=== PATIENT | female | born 1995 | race African-American/Black ===

== ENCOUNTER 2020-02-06 08:59 | Emergency (ER) | payer OTHER, SELFPAY ==
[2020-02-06 09:06] VITALS: BP 129/81; PULSE 94; RESP 18; TEMP 36.3; O2SAT 99
--- NOTE | 2020-02-06 09:20 | ED.EYEPROB ---
HPI - Eye Problem General Chief complaint: Eye Problems Stated complaint: eye pain/irritation Time Seen by Provider: 02/06/20 09:04 Source: patient Mode of arrival: ambulatory Limitations: no limitations History of Present Illness HPI Narrative: This patient is 24 year old female who presents for evaluation of left eye swelling. She reports she developed left upper eye lid swelling yesterday. She denies drainage, fever. She denies feeling of foreign body. She states she rubs her eye frequently. She has no history of glasses or contact use. Related Data Allergies Allergy/AdvReac Type Severity Reaction Status Date / Time epinephrine Allergy Mild Verified 08/20/18 14:43 Review of Systems Review of Systems: All systems reviewed & are unremarkable except as noted in HPI and below PMFSH Past Medical History Medical History (Updated 02/06/20 @ 09:26 by Marlyn Durham MD) Patient denies medical problems Surgical History Surgical History (Updated 02/06/20 @ 09:23 by Marlyn Durham MD) No pertinent past surgical history Social History Social History (Updated 02/06/20 @ 09:24 by Marlyn Durham MD) Smoking status: Current every day smoker Substance use type: marijuana Exam Const: General: no acute distress and alert Orientation/consciousness: patient oriented x3 HENMT: Head: normocephalic and atraumatic Face and sinus: face symmetric Eyes: Conjunctivae: conjunctivae normal Pupils: Equal, round and reactive pupils present EOM: EOMs intact bilaterally Other: left upper eyelid swelling with mild erythema, no drainage, negative fluorescein uptake, Resp: Effort & Inspection: normal respiratory effort Neuro: General: patient oriented x3 and moves all extremities Extrem: General: normal to inspection Psych: Mental Status: mental status grossly normal Affect: normal affect Course Reevaluation(s) Reevaluation #1: I have discussed with patient discharge plan to treat with antibiotic ointment. I also discussed warm compresses to eye Date: 02/06/20 Time: 09:25 Vital Signs Vital signs: Vital Signs Temperature 97.4 F L 02/06/20 09:06 Pulse Rate 94 02/06/20 09:06 Respiratory Rate 18 02/06/20 09:06 Blood Pressure 129/81 02/06/20 09:06 Pulse Oximetry 99 02/06/20 09:06 Temperature 97.4 F L 02/06/20 09:06 Pulse Rate 94 02/06/20 09:06 Respiratory Rate 18 02/06/20 09:06 Blood Pressure 129/81 02/06/20 09:06 Pulse Oximetry 99 02/06/20 09:06 Discharge Plan Discharge Clinical Impression: Blepharitis of eyelid of left eye Qualifiers: Blepharitis type: unspecified type Eyelid: upper Qualified Code(s): H01.004 - Unspecified blepharitis left upper eyelid Patient Disposition: Home, Self-Care Condition: Stable Instructions: Antibiotic Form, Chalazion (ED), Blepharitis (ED) Additional Instructions: Apply warm compressess to closed lid for 5-10 mintues tow to four times daily. Apply ointment until it clears. Follow up with an eye doctor if your swelling does not improve after a 3-4 days. Prescriptions: New bacitracin 500 unit/gram ointment 1 applic LEFTEYE Q8H 7 Days Qty: 3.5 RF: 0 Follow-up/Referrals: Mehran,ARGENTINA Roberts [Primary Care Provider] -
== END 2020-02-06 09:35 | disposition home or self-care (01) ==
PROVIDERS: Emergency Provider General Practice; PCP Physician Assistant
DX: H01.004 Unspecified blepharitis left upper eyelid (principal)
CPT/HCPCS: 99283

== ENCOUNTER 2021-10-27 13:48 | Emergency (ER) | payer OTHER, SELFPAY ==
--- NOTE | ~2021-10-27 | XR_ITS ---
EXAMINATION: XR knee RT min 4V DATE: 10/27/2021 15:19 INDICATION: Right knee pain TECHNIQUE: Four views of the right knee were obtained. COMPARISON: None. FINDINGS: Alignment is normal. No fracture or osteochondral lesion. Joint spaces are normal with no e rosions. No joint effusion/synovitis. Soft tissues are unremarkable. IMPRESSION: 1. No acute osseous abnormality. Reviewed, dictated and finalized at location B.
--- NOTE | ~2021-10-27 | XR_ITS ---
EXAMINATION: XR hand RT min 3V INDICATION: Right hand pain TECHNIQUE: Three views of the right hand are obtained. COMPARISON: None available FINDINGS: There is no fracture, dislocation, or subluxation. The bones, soft tissues, and joint space s are normal. There is mild hyperextension at the third distal interphalangeal joint on the lateral v iew of unclear significance. IMPRESSION: 1. No acute osseous abnormality. 2. Mild hyperextension of the third distal interphalangeal joint on the lateral view of unclear signi ficance. Reviewed, dictated and finalized at location B. IMPRESSION: 1. No acute osseous abnormality. 2. Mild hyperextension of the third distal interphalangeal joint on the lateral view of unclear significance.
[2021-10-27 14:39] VITALS: BP 126/57; PULSE 82; RESP 16; TEMP 36.6; O2SAT 100
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
== END 2021-10-27 15:55 | disposition home or self-care (01) ==
LOC: ANHED 15:23
PROVIDERS: Emergency Provider Emergency Medicine; PCP Physician Assistant
DX: S63.91XA Sprain of unspecified part of right wrist and hand, initial encounter (principal); S80.01XA Contusion of right knee, initial encounter; V79.88XA Bus occupant (driver) (passenger) injured in other specified transport accidents, initial encounter
CPT/HCPCS: 73130; 73564; 99283

== ENCOUNTER 2023-07-30 10:39 | Emergency (ER) | payer OTHER, SELFPAY ==
--- NOTE | ~2023-07-30 | XR_ITS ---
EXAMINATION: XR chest 1V portable DATE: 07/30/2023 11:28 INDICATION: Shortness of breath and weakness. Heat exhaustion. TECHNIQUE: frontal view of the chest was obtained. COMPARISON: None FINDINGS: The lungs are clear with no focal airspace opacities, pulmonary edema, pleural effusion or pneumothor ax. The cardiomediastinal silhouette is normal. Visualized bones and soft tissues are unremarkable. IMPRESSION: 1. Normal chest radiograph. Reviewed, dictated and finalized at location A. IMPRESSION: 1. Normal chest radiograph.
--- NOTE | 2023-07-30 10:47 | ED.SOB ---
HPI - SOB/Dyspnea General Chief Complaint: Shortness of Breath/Dyspnea Stated Complaint: can't breathe Time Seen by Provider: 07/30/23 10:41 History of Present Illness HPI Narrative: 28-year-old female presenting to the emergency department for evaluation for acute onset of shortness of breath. Patient and family states patient began having shortness of breath approximately 10 minutes prior to arrival. Patient does have a history of asthma and does smoke. Related Data Allergies Allergy/AdvReac Type Severity Reaction Status Date / Time epinephrine Allergy Mild Verified 08/20/18 14:43 Review of Systems Review of Systems: All systems reviewed & are unremarkable except as noted in HPI and below PMFSH Past Medical History Medical History Patient denies medical problems Surgical History Surgical History No pertinent past surgical history Social History Social History Smoking status: Current every day smoker Substance use type: marijuana Exam Narrative: APPEARANCE: distressed HEAD: normocephalic, atraumatic. EYES: PERRLA/EOMI, conjunctivae clear. NOSE: Normal no drainage EARS:TMS clear with good light reflex. THROAT: Pharynx clear, no exudate. NECK: Supple. No adenopathy, no masses. RESPIRATORY: Expiratory wheeze, tachypnea CARDIOVASCULAR: Regular rate and rhythm without murmurs rubs or gallops. ABDOMINAL: Soft, nontender, nondistended, normal bowel sounds MUSCULOSKELETAL: Moves all extremities. Strength/ROM intact, No edema, No calf tenderness. NEURO: Alert. Cranial nerves II through XII intact. Grossly intact SKIN: Warm, dry. Normal Color Course Vital Signs Vital signs: Vital Signs Temperature 97.8 F 07/30/23 10:48 Pulse Rate 62 07/30/23 10:48 Respiratory Rate 18 07/30/23 10:48 Blood Pressure 103/60 07/30/23 10:48 Pulse Oximetry 100 07/30/23 10:48 Oxygen Delivery Room Air 07/30/23 10:48 Temperature 97.8 F 07/30/23 10:48 Pulse Rate 55 L 07/30/23 11:06 Respiratory Rate 20 07/30/23 11:06 Blood Pressure 103/60 07/30/23 10:48 Pulse Oximetry 100 07/30/23 10:48 Oxygen Delivery Room Air 07/30/23 11:29 MDM - SOB/Dyspnea MDM Narrative Medical decision making narrative: 28-year-old female presenting to the emergency department for evaluation for difficulty breathing. Patient appeared to be in respiratory distress upon arrival. She was treated with a breathing treatment shortly after arrival. In response to her breathing treatment patient apparently felt improved, patient was seen eloping from the room stating she felt better and patient left the hospital in no distress. Lab Data Attestation: I reviewed the patient's lab results. 07/30/23 11:01 07/30/23 11:01 Labs: Lab Results 07/30/23 Range/Units 11:01 WBC 6.0 (4.5-10.0) K/mm3 RBC 4.44 (4.2-5.4) M/mm3 Hgb 12.1 (12.0-15.0) g/dL Hct 36.9 L (37.0-47.0) % MCV 83.1 (80-100) fl MCH 27.3 (26-34) pg MCHC 32.8 (32-36) g/dl RDW 13.2 (11.5-14.5) % Plt Count 347 (150-375) k/mm3 MPV 9.2 (7.4-10.4) fl Immature Gran % (Auto) 0.2 (0-0.5) % Neut % (Auto) 32.4 L (45.5-73.1) % Lymph % (Auto) 54.8 H (18.3-44.2) % [place]arro % (Auto) 10.0 H (2.6-8.5) % Eos % (Auto) 1.8 (0-4.4) % Baso % (Auto) 0.8 (0.2-1.2) % Lymph # (Auto) 3.28 H (0.9-3.2) K/mm3 [place]arro # (Auto) 0.6 (0.1-0.6) K/mm3 Eos # (Auto) 0.1 (0-0.3) K/mm3 Baso # (Auto) 0.1 (0.0-0.1) K/mm3 Abs Immat Gran (auto) 0.01 (0.00-0.031) K/mm3 Absolute Neuts (auto) 1.9 (1.3-6.7) K/mm3 Absolute Nucleated RBC 0.000 (0.0-0.012) K/mm3 Nucleated RBC % 0.0 (0.0-0.2) % PT Pending INR Pending APTT Pending D-Dimer Pending Sodium 141 (137-145) mmol/L Potassium 3.7 (3.4-5.0) mmol/L Chloride 112 H (98-107)
[2023-07-30 10:48] VITALS: BP 103/60; PULSE 62; RESP 18; TEMP 36.6; O2SAT 100
[2023-07-30 11:06] VITALS: PULSE 55; RESP 20
[2023-07-30] MEDS: ALBUTEROL SULFATE NEB 2.5 MG/3 ML INH INHALATION (11:06)
[2023-07-30 11:14] LABS: Basophils Absolute Auto 0.1 K/mm3 (0.0-0.1); Basophils Percent Auto 0.8 % (0.2-1.2); Eosinophils Absolute Auto 0.1 K/mm3 (0-0.3); Eosinophils Percent Auto 1.8 % (0-4.4); Hematocrit 36.9 % (37.0-47.0); Hemoglobin 12.1 g/dL (12.0-15.0); Immature Granulocyte Absolute 0.01 K/mm3 (0.00-0.031); Immature Granulocyte Percent A 0.2 % (0-0.5); Lymphocytes Absolute Auto 3.28 K/mm3 (0.9-3.2); Lymphocytes Percent Auto 54.8 % (18.3-44.2); Mean Corpuscular HGB Conc 32.8 g/dl (32-36); Mean Corpuscular Hemoglobin 27.3 pg (26-34); Mean Corpuscular Volume 83.1 fl (80-100); Mean Platelet Volume 9.2 fl (7.4-10.4); Monocytes Absolute Auto 0.6 K/mm3 (0.1-0.6); Neutrophils Absolute Auto 1.9 K/mm3 (1.3-6.7); Neutrophils Percent Auto 32.4 % (45.5-73.1); Platelet Count Result 347 k/mm3 (150-375); Red Blood Count 4.44 M/mm3 (4.2-5.4); Red Cell Distribution Width 13.2 % (11.5-14.5)
[2023-07-30 11:26] LABS: Alanine Aminotransferase 13 U/L (6-35); Albumin Level 4.4 g/dL (3.5-5.1); Alkaline Phosphatase 75 U/L (38-126); Anion Gap 10 mmol/L (4-12); Aspartate Amino Transferase 23 U/L (14-36); Bilirubin,Total 0.5 mg/dL (0.2-1.3); Blood Urea Nitrogen 9 mg/dL (7-17); Calcium 9.7 mg/dL (8.4-10.2); Carbon Dioxide 19 mmol/L (22-30); Chloride 112 mmol/L (98-107); Estimated CRCL calculation 125 ml/min; Estimated Glomerular Filt Rate > 60; Glucose 74 mg/dL (65-110); Potassium 3.7 mmol/L (3.4-5.0); Sodium 141 mmol/L (137-145)
[2023-07-30 11:47] LABS: Influenza A QL RT-PCR Negative (Negative); Influenza B QL RT-PCR Negative (Negative); RSV RNA, RT-PCR Negative (Negative); SARS-CoV-2 RNA PCR Negative (Negative)
--- NOTE | 2023-07-30 12:01 | PC.NURSE ---
Patient seen walking out of room and asked where she was going. Patient states Im leaving and going home . This RN attempted to talk to patient, but she kept walking out of department. Provider aware
== END 2023-07-30 12:10 | disposition left against medical advice (07) ==
PROVIDERS: Emergency Provider Emergency Medicine
DX: R06.02 Shortness of breath (principal); Z20.822 Contact with and (suspected) exposure to COVID-19
CPT/HCPCS: 36415; 71045; 80053; 85025; 87637; 94640; 99283

== ENCOUNTER 2023-11-12 07:55 | Emergency (ER) | payer OTHER, SELFPAY ==
[2023-11-12 08:00] VITALS: BP 119/75; PULSE 73; RESP 17; TEMP 36.8; O2SAT 100
--- NOTE | 2023-11-12 08:05 | ED.SKABFB ---
HPI - Skin/Abscess/Foreign Bdy General Chief complaint: Skin/Abscess/Foreign Body Stated complaint: insect bite to R arm Time Seen by Provider: 11/12/23 07:59 History of Present Illness HPI narrative: Pt presents with insect bite on right forearm. Pt denies fever. Pt claims 6/10 pain. Related Data Allergies Allergy/AdvReac Type Severity Reaction Status Date / Time epinephrine Allergy Mild Unknown Verified 11/12/23 08:03 Review of Systems Review of Systems: All systems reviewed & are unremarkable except as noted in HPI and below PMFSH Past Medical History Medical History Patient denies medical problems Surgical History Surgical History No pertinent past surgical history Social History Social History Smoking status: Current every day smoker Substance use type: marijuana Exam Const: General: healthy appearing and no acute distress Nutritional Appearance: well nourished Orientation/consciousness: patient oriented x3 Limitations: no limitations HENMT: Head: normal to inspection Resp: Effort & Inspection: normal respiratory effort Skin: Other: small area of erythema but no abscess or lympnangitis right forearm Neuro: General: patient oriented x3, moves all extremities and no focal motor deficits Cranial nerves: Yes Nystagmus not present Speech: normal speech Extrem: General: no clubbing, cyanosis or edema Psych: Mental Status: mental status grossly normal Affect: normal affect Attitude: cooperative Course Vital Signs Vital signs: Vital Signs Temperature 98.2 F 11/12/23 08:00 Pulse Rate 73 11/12/23 08:00 Respiratory Rate 17 11/12/23 08:00 Blood Pressure 119/75 11/12/23 08:00 Pulse Oximetry 100 11/12/23 08:00 Oxygen Delivery Room Air 11/12/23 08:00 Temperature 98.2 F 11/12/23 08:00 Pulse Rate 73 11/12/23 08:00 Respiratory Rate 17 11/12/23 08:00 Blood Pressure 119/75 11/12/23 08:00 Pulse Oximetry 100 11/12/23 08:00 Oxygen Delivery Room Air 11/12/23 08:00 MDM - Skin/Abscess/Foreign Bdy MDM Narrative Medical decision making narrative: small non infected insect bite to right forearm. no abscess. will give some bactim to hold if gets wors. ptn requests liquid. Discharge Plan Discharge Clinical Impression: Insect bites Patient Disposition: Home, Self-Care Condition: Stable Instructions: Antibiotic Form, Insect Bite or Sting (ED) Prescriptions: New sulfamethoxazole-trimethoprim [Sulfatrim] 200-40 mg/5 mL suspension 20 ml PO BID Qty: 473 0RF No Action bacitracin 500 unit/gram ointment 1 applic LEFTEYE Q8H 7 Days Qty: 3.5 0RF Follow-up/Referrals: PHYSICIAN NOT ON STAFF,NONSTAFF [Non-Staff] -
== END 2023-11-12 08:17 | disposition home or self-care (01) ==
LOC: ANHED 08:13
PROVIDERS: Emergency Provider Emergency Medicine; PCP Nurse Practitioner Family
DX: S50.861A Insect bite (nonvenomous) of right forearm, initial encounter (principal); F17.200 Nicotine dependence, unspecified, uncomplicated; W57.XXXA Bitten or stung by nonvenomous insect and other nonvenomous arthropods, initial encounter
CPT/HCPCS: 99283

== ENCOUNTER 2024-06-18 14:40 | Emergency (ER) | payer OTHER, SELFPAY ==
--- OUTSIDE RECORDS SUMMARY | 2024-06-18 14:42 | XMS_ITS | Data Portability ---
Author Organization [place] [facility] [employer], Main Office Address [address] [place] [address] Care Team Providers Care Crime Lab Technician Name Role Phone JAROCHO VERGARA Coating Inspector NETTIE MCCLENDON Coating Inspector [phone] KAYLA AGUILAR Primary Care Provider KAYLA AGUILAR Referring Provider [phone] Assessment Encounter Date Assessment Date Assessment LastModified by Organization Details LastModified Time 12/24/2023 12/24/2023 Assessment: Cough Dyspnea Plan: The following were reviewed and explained to the patient: primary care/referral note Cough/Dyspnea workup will be done as follows: Respiratory allergen panel for [facility] Serum IgE Serum total IgG, IgG1, IgG2, IgG3, IgG4 Chgwm-2-wameelgsgo n phenotype and level TB stimulated gamma interferon B-type natriuretic peptide (BNP) Eosinophil count Complete pulmonary function testing (PFT) Chest x-ray 2 views Advised to continue not to smoke. Continue albuterol HFA as needed. The patient does not know how to accurately administer the inhaler. Today, the patient was shown how to take this medication. The proper technique for delivering this medication was instructed. The patient expressed a clear understanding and demonstrated back how to use this medication. Without the proper technique, the patient will not reap the benefits of the treatment as the contents of the inhaler will not reach the lower airways as intended to be. Adherence to therapy is advocated. Nonadherence may lead to treatment failure, further progression of the condition, and other complications. Hospitals admissions are often the result of individuals not taking prescription medications accurately. Alternatively, greater adherence to medication regimens have shown to lower rates of hospitalization and decrease total medical costs in patients with chronic medical conditions. Advocated influenza vaccination annually and pneumonia vaccination MARISOL. Advocated weight loss through diet and exercise. Patient's ideal body weight according to height and gender is up to 130 lbs. Encouraged patient to adjust caloric intake to maintain/achieve ideal body weight, emphasizing on fruits, vegetables, whole grains, and fat-free or low-fat products. These include lean meats, poultry, fish, beans, eggs, and nuts and foods that are low in saturated fats, trans-fats, cholesterol, salt (sodium), and glycemic index. Stressed the importance of regular exercise up to the patient's capacity limits. In this case, we recommend 20 min daily walking, 2 days a week of resistance training. Patient to monitor BP daily and bring records to PCP for further management. Follow-up: 1 week after PFT [email or web address] Not available 12/24/2023 12:59:08 Plan of Treatment Reminders Order Date Submit Date Provider Last Modified By Organization Details Last Modified Time Details Appointments None recorded. Lab alpha-1-an titrypsin (aat) phenotype, serum 2023 [facility], [address] [place] [address], [address], 4 16:16:11 BNP (B-type natriureti c peptide), serum or plasma 2023 [facility], [address] [place], [address], 4 16:32:31 ige, total, serum [address] Outpatient Lab, [address] [place], [address], 4 12:26:14 tb (M tuberculos is), ifn-gamma kadeem, blood [address] Outpatient Lab, [address] [place], [address], 4 12:26:14 eosinophil count, manual, blood (OBS) [address] Outpatient Lab, [facility] [place], [address], 4 12:26:14 igg subclasses 1+2+3+4, serum 2023 024 [email or web address] 2 [facility] - Outpatient Lab, [address] [place], [address], 4 12:26:14 respirator y allergen panel, [facility] A, serum 2023 024 [email or web address] 2 [facility] - Outpatient Lab, [address] [place], [address], 4 12:26:14 respirator y allergen panel - [facility] b 2023 024 [email or web address] 2 [facility] - Outpatient Lab, [address] [place], [address], 4 12:26:15 CBC w/ auto diff 2023 024 [email or web address] [facility] - Outpatient Lab, [address] [place], [address], 4 09:55:33 CMP, serum or plasma [facility] [address] [place], [address], 4 13:42:14 lipid panel, serum 2023 024 [facility] (Lab), [address] [place], [address], 4 08:13:27 TSH + free T4, serum 2023 024 [email or web address] [facility] Outpatient Lab, [address] [place], [address], 4 09:55:34 hepatitis C virus Ab, serum 2023 [facility] - Outpatient Lab, [address] [place], [address], 4 08:13:27 HbA1c (hemoglobi n A1c), blood 2023 [facility] - Outpatient Lab, [address] [place], [address], 4 08:13:27 Referral gastroente rologist referral - Please call patient to schedule. 2023 yosef Dominguez MD, [address] [facility] [address], [place], [address], 4 07:39:54 pulmonolog ist referral - Please call patient to schedule. 2023 024 yosef Lyons [employer]PA[employer]ER-C, [address] [facility], [facility] 15, [place], [address], 4 08:09:24 Procedures upper endoscopy procedure (EGD) (PROC) 2023 [facility] (Pre-Screen), [address] [place], [address], 4 11:51:30 Surgeries None recorded. Imaging XR, chest, 2 view 2023 ADIEL Not available 4 13:10:15 PFT, complete - Please call patient to schedule. 2023 [facility] (One Call Scheduling), [address] [place], [address], 4 07:48:34 Medication Orders None recorded. Patient TargetsNo targets recorded. Patient Instructions Encounter Date Encounter Id Patient Instructions Last Modified By Organization Details Last Modified Time 10/18/2023 [id number] Follow up in 4 months Obtain labs Tests: Referral: GI-Dr. Dominguez-Esophogeal stricture Pulmonology-Magdalena Lyons-Asthma Recommend: Tetanus vaccine Not available 10/18/2023 09:52:18 12/24/2023 [id number] complete PFT w/ post bronchodilator spirometry* - Please call patient to schedule. NPAN [id number] per [facility] website. [email or web address] Not available 01/22/2024 08:47:57 12/26/2023 [id number] LIQUID BASED DIET [email or web address] Not avail able 12/26/2023 12:45:23 PT WITH DYSPHAGI A . DDX : EoE / ESOPHAGEAL STRICTURE . RECOMMEND AN EGD . RISKS BENEFITS AND COMPLICATIONS WERE EXPLAINED TO PT . ( BLEEDING , PERFORATION , INFECTION , ) PT VERBALIZES UNDERSTANDING AND IS WILLING TO PROCEDE . [email or web address] Not available 12/26/2023 12:47:38 01/09/2024 [id number] PT WITH DYSPHAGI A. S/P EGD WITH BX . THERE WAS NO EOE / OR ESOPHAGITIS . CONT PANTOPRAZOLE 40 MG , F/U IN 4 WEEKS . [email or web address] Not available 01/09/2024 12:24:30 Reason for Referral Wireless Cellular Technician Referral for Stricture of esophagus Please call patient to schedule. Referring Physician: Anneliese Buckley, Internal Medicine, Encounter Date: 10/18/2023 Funeral Attendant Referral for A sthma Please call patient to schedule. Referring Physician: Anneliese Buckley Internal Medicine, Encounter Date: 10/18/2023 Results Created Date Observation Date Name Description Value Unit Range Abnormal Flag Note LastModifiedBy Organization Detail LastModifiedTime 07/01/1907/01/2023 imagi ng/di akashos tic resul t No observ ation record ed. [email or web address] [facility] [address] [place], [address], 07/03/2023 14:43:21 12/26/19 24 12/26/2023 XR, chest , 2 view No observ ation record ed. [email or web address] [facility] [address] [place], [address], 12/26/2023 13:33:58 Result Notes None recorded. Problems Name Problem SNOMED Code Status Onset Date Resolution Date Notes Provider Name and Address Organization Details Recorded Time Asthma 912758832 Active 2023 Anneliese Buckley APRN [address] [facility], [place] [address], [place], [address] , [facility] [employer] [facility] 4 09:45:04 Esophageal dysphagia 81505086 Active 2023 Vidhi Dominguez MD [address] 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 Procedures Surgical History None recorded. Imaging Results Imaging Date Name Status LastModified by Organiz ation Details LastModified Time 07/01/2023 imaging/diag nostic result completed [email or web address] [facility] [address] [place], [address], 07/03/2023 14:43:21 12/26/2023 XR, chest, 2 view completed [email or web address] [facility] [address] [place], [address], 12/26/2023 13:33:58 Procedure Notes None recorded. Medical Equipment None Reported. Allergies Allergen ID Allergen Name Allergen Category Reaction Reaction Severity Criticality Documentation Date Start Date Code Code System Note Provider Name and Address Organization Details Recorded Time 52729 epinephri ne medicatio n cardiac arrest severe Not available 04/12/2022 3992 RxNorm Not Available [employer] 3 19:15:16 18192 racepinep hrine medicatio n Not available Not available Not available 10/12/2023 79103 RxNorm Other react ions and sever ities : 'Adve rse react ion to subst ance' . Anneliese Buckley APRN [address] [facility], [facility] [address], [place], [address], [place] [facility] 4 17:51:33 Medications Name Sig Start Date Stop Date Status Note LastModified by Organization Details LastModified Time cyclobenzap rine 10 mg tablet TAKE 0.5-1 TABLET BY MOUTH 2 TIMES A DAY 10/17 completed Not Available Not Available Not Available ibuprofen 800 mg tablet TAKE 1 TABLET BY MOUTH EVERY 6 TO 8 HOURS NEEDED 10/17 completed Not Available Not Available Not Available amoxicillin 600 mg-potassiu m clavulanate 42.9 mg/5 mL oral suspension TAKE 7.5 MILLILITE RS BY MOUTH 2 TIMES A DAY *DISCARD REMAINING MEDICINE* 10/17 completed Not Available Not Available Not Available hydrocodone 5 mg-acetamin ophen 325 mg tablet 05/26 completed Not Available Not Available Not Available bacitracin 500 unit/gram eye ointment 11/12 completed Not Available Not Available Not Available ondansetron HCl 4 mg tablet 4 mg by oral route. 04/19 completed Not Available Not Available Not Available prednisone 20 mg tablet 10/17 completed Not Available Not Available Not Available penicillin V potassium 250 mg/5 mL oral solution TAKE 10 ML BY MOUTH FOUR TIMES DAILY FOR 7 DAYS. DISCARD REMAINDER 02/19 completed Not Available Not Available Not Available penicillin V potassium 500 mg tablet 09/27 completed Not Available Not Available Not Available metronidazo le 500 mg tablet 09/27 completed Not Available Not Available Not Available tramadol 50 mg tablet 11/12 completed Not Available Not Available Not Available ketorolac 10 mg tablet TAKE 1 TABLET EVERY 6 HOURS NEEDED FOR PAIN. START 04/02 AND TAKE NO LONGER THAN 5 DAYS active Not Available Not Available No t Available cephalexin 500 mg capsule 05/26 completed Not Available Not Available Not Available pantoprazol e 40 mg tablet,nestor yed release TAKE 1 TABLET BY MOUTH EVERY MORNING 30 MINUTES BEFORE BREAKFAST FOR ACID REFLUX active Not Available Not Available No t Available triamcinolo ne acetonide 0.1 % topical ointment 11/12 completed Not Available Not Available Not Available lidocaine 5 % topical patch APPLY 1 PATCH TOPICALLY DAILY REMOVE AFTER 12 HOURS (NEED 12 HOUR PATCH FREE PERIOD). 10/17 completed Not Available Not Available Not Available orphenadrin e citrate ER 100 mg tablet,exte nded release TAKE 1 TABLET BY MOUTH TWICE A DAY 10/17 completed Not Available Not Available Not Available sulfamethox azole 200 mg-trimetho prim 40 mg/5 mL oral suspension TAKE 20 ML BY MOUTH TWICE A DAY 01/02 completed Not Available Not Available Not Available lidocaine HCl 2 % mucosal solution 15 mL by mucous mem route. 04/19 completed Not Available Not Available Not Available hydroxyzine HCl 25 mg tablet TAKE 1 TABLET BY MOUTH EVERY 6 TO 8 HOURS NEEDED 10/17 completed Not Available Not Available Not Available prednisolon e 15 mg/5 mL oral solution TAKE 20ML BY MOUTH DAILY X 3 DAYS,10ML DAILY X 2 DAYS THEN 5ML DAILY X 2 DAYS. START ON 10-01-2310/17 completed Not Available Not Available Not Available amoxicillin 400 mg/5 mL oral suspension 10/17 completed Not Available Not Available Not Available ibuprofen 600 mg tablet 10/17 completed Not Available Not Available Not Available methylpredn isolone 4 mg tablets in a dose pack TAKE 6 TABS ON DAY 1 DIRECTED ON PACKAGE. DECREASE BY 1 TAB EACH DAY FOR 6 DAYS START 06/21/2310/17 completed Not Available Not Available Not Available albuterol sulfate HFA 90 mcg/actuati on aerosol inhaler active Not Available Not Available Not Available naproxen 500 mg tablet TAKE 1 TABLET (500 MG TOTAL) BY MOUTH 2 (TWO) TIMES A DAY TAKE WITH FOOD. 10/17 completed Not Available Not Available Not Available amoxicillin 875 mg-potassiu m clavulanate 125 mg tablet Take 1 tablet by oral route. 10/17 completed Not Available Not Available Not Available Mag-Al Plus 200 mg-200 mg-20 mg/5 mL oral suspension 30 mL by oral route. 04/19 completed Not Available Not Available Not Available chlorhexidi ne gluconate 0.12 % mouthwash SWISH AND SPIT 15ML BY MOUTH FOR 20 SECONDS TWICE DAILY active Not Available Not Available No t Available Oysco 500/D 500 mg-5 mcg (200 unit) tablet 11/12 completed Not Available Not Available Not Available Vitals Date Recorded Body height Body mass index (BMI) Body weight Body temperature Heart rate Oxygen saturation Oxygen saturation in Arterial blood by Pulse oximetry Systolic blood pressure Diastolic blood pressure Provider Name and Address Organization Details Last Updated DateTime 4 162.56 cm 32.6 kg/m2 37273.5 5 g 97.6 [degF] 74 /min 98 % 98 % 116 mm[Hg] 70 mm[Hg] Latha Vaughan MA [facility] [employer] [facility] 4 09:22:35 Date Recorded Body height Body mass index (BMI) Body weight Body temperature Heart rate Heart rate Respiratory rate Oxygen saturation Oxygen saturation in Arterial blood by Pulse oximetry Systolic blood pressure Diastolic blood pressure Provider Name and Address Organization Details Last Updated DateTime 4 162.56 cm 33 kg/m2 26479.7 4 g 98.1 [degF] 65 /min 65 /min 15 /min 99 % 99 % 122 mm[Hg] 82 mm[Hg] Robbin Olguin MD [address] [place] [address], [address], [place] [employer] [facility] [employer] 4 13:00:54 Date Recorded Body height Body mass index (BMI) Body weight Heart rate Oxygen saturation Oxygen saturation in Arterial blood by Pulse oximetry Systolic blood pressure Diastolic blood pressure Provider Name and Address Organization Details Last Updated DateTime 4 162.56 cm 32.6 kg/m2 12927.5 5 g 64 /min 99 % 99 % 120 mm[Hg] 80 mm[Hg] RADHA Avilez [place] [employer] [facility] [employer] [facility] 4 11:49:55 Date Recorded Body height Body mass index (BMI) Body weight Heart rate Oxygen saturation Oxygen saturation in Arterial blood by Pulse oximetry Systolic blood pressure Diastolic blood pressure Provider Name and Address Organization Details Last Updated DateTime 4 162.56 cm 32.6 kg/m2 17840.5 5 g 62 /min 99 % 99 % 122 mm[Hg] 82 mm[Hg] RADHA Avilez [place] [employer] [facility] [employer] [facility] 4 11:12:27 Social History Question Answer Notes LastModified by Organization Details LastModified Time Tobacco Smoking Status Former Smoker GENIA Vernon, [facility] 10/18/2023 09:27:08 What Is Your Level Of Alcohol Consumption? Occasional [id number] Information not available 04/12/2022 What Is Your Level Of Caffeine Consumption? Moderate Information not available 02/20/2024 In The 14 Days Before Symptom Onset, Have You Had Close Contact With A Laboratory-confi rmed COVID-19 While That Case Was Ill? No Information not available 10/18/2023 In The 14 Days Before Symptom Onset, Have You Had Close Contact With A Person Who Is Under Investigation For COVID-19 While That Person Was Ill? No Information not available 10/18/2023 Are You Currently Employed? No Information not available 10/18/2023 What Type Of Diet Are You Following? REGULAR Information not available 10/18/2023 When Did You Quit Smoking? 11-15yearssincelast cigarette Information not available 10/18/2023 Do You Use Insect Repellent Routinely? No Information not available 10/18/2023 Where Do You Live? SingleLevelHouse Information not available 10/18/2023 What Was The Date Of Your Most Recent Tobacco Screening? 10/18/2023 Information not available 10/18/2023 Do You Have Any Pets? No Information not available 10/18/2023 What Is Your Relationship Status? Information not available 10/18/2023 Do You Use Your Seat Belt Or Car Seat Routinely? Yes Information not available 10/18/2023 Do You Have Smoke And Carbon Monoxide Detectors In Your Home? Yes Information not available 10/18/2023 At What Age Did You Start Smoking Tobacco? 13 Information not available 10/18/2023 Are You Passively Exposed To Smoke? No Information not available 10/18/2023 Are There Any Smokers In Your House? No Information not available 10/18/2023 How Much Tobacco Do You Smoke? No Information not available 02/20/2024 Do You Feel Stressed (tense, Restless, Nervous, Or Anxious, Or Unable To Sleep At Night)? [id number] Information not available 10/18/2023 Do You Use Any Illicit Or Recreational Drugs? Yes Medical Information not available 10/18/2023 Do You Use Sunscreen Routinely? No Information not available 10/18/2023 Have You Recently Traveled Abroad? No Information not available 10/18/2023 Have You Used IV Drugs? No Information not available 10/18/2023 Do You Have Any Dietary Restrictions? No Information not available 10/18/2023 Sex: Unknown Functional Status Question Answer Note LastModified by Organizat ion Details LastModified Time What is your exercise level? Occasional Information not available 02/20/2024 Mental Status None recorded. Family History Relationship Description Onset Age of this Age Resolved Age Notes LastModified by Organization Details LastModified Time Mother Chronic obstructive pulmonary disease [email or web address] Not available 2023 11:00:58 Mother Hypertensive disorder [email or web address] Not available 2023 12:56:28 Mother Hypothyroidi sm [email or web address] Not available 2023 11:00:58 Maternal Grandmother Hypertensive disorder [email or web address] Not available 2023 12:56:22 Maternal Grandfather Congestive heart failure [email or web address] Not available 2023 11:00:58 Maternal Aunt Hypertensive disorder [email or web address] Not available 2023 11:00:58 Maternal Uncle Hypertensive disorder [email or web address] Not available 2023 11:00:58 Paternal Grandmother Congestive heart failure [email or web address] Not available 2023 11:00:58 Medical History Condition Response BLINDNESS N KIDNEY STONES N MRSA N CARPAL TUNNEL SYNDROME N LUNG DISEASE/DISORDER Y HISTORY OF DRUG ABUSE N RADIATION / CHEMOTHERAPY N COPD N SPORTS INJURY N ANKLE PAIN N BLOOD DISEASES N SCHIZOPHRENIA N SHINGLES N SHOULDER PAIN N DEPRESSION (INCLUDING POST ) N BOWEL PROBLEMS N STROKE/TIA N ULCERS N KNEE PAIN N BENIGN PROSTATIC HYPERPLASIA N OBESITY N GERD/NAUSEA N ANEURYSM N URINARY/BLADDER/KIDNEY PROBLEMS N CORONARY ARTERY DISEASE (CAD) N ADDICTION CONCERNS N USE OF BLOOD THINNERS N SKIN PROBLEMS N EMPHYSEMA N MUSCLE,JOINT OR BONE PROBLEMS N DVT N STOMACH ULCERS N BLOOD CLOTS N USE OF NSAIDS N CONCUSSION OR SPINAL TRAUMA N GI PROBLEMS Y NEUROPATHY N AIDS/HIV N FRACTURES N HYPERTENSION N ELBOW PAIN N TOURETTE'S N Metal allergy N ANXIETY DISORDER N BLOOD TRANSFUSION N ANEMIA/BLOOD DISORDER N BIPOLAR DISORDER N BRONCHITIS N OSTEOARTHRITIS N TUBERCULOSIS N FOOT PROBLEM N HEART VALVE DISORDERS N SOFT TISSUE INJURY N ALLERGIES/HAYFEVER N INFECTIOUS DISEASE N HEART ARRHYTHMIA N INSOMNIA N RHEUMATOID ARTHRITIS N HIGH CHOLESTEROL / HYPERLIPIDEMIA N EDEMA N CHRONIC PAIN SYNDROME N CAROTID BLOCKAGE N BACK / NECK PROBLEMS N HAVE YOU BEEN HOSPITALIZED OR SEEN IN [facility] ER IN THE PAST YEAR ? N BURSITIS N HERNIATED DISC N DIALYSIS N FIBROMYALGIA N OSTEOPOROSIS N ARTHRITIS N NO SIGNIFICANT PAST MEDICAL HISTORY N PERIPHERAL NEUROPATHY N DIABETES, TYPE N HEARTBURN / REFLUX N HEPATITIS / LIVER DISEASE N GOUT N SLEEP DISORDER N ALZHEIMER'S DISEASE N HERPES N SEIZURES/EPILEPSY N HEADACHES/MIGRAINES N VASCULAR DISEASE N HIP PAIN N Blood Disorder N DIZZINESS N HEAD TRAUMA OR INJURY N HEART DISEASE/HEART PROBLEMS N MULTIPLE SCLEROSIS N CARDIAC ARRHYTHMIA N CANCER: SPECIFY N ANESTHESIA COMPLICATIONS N ATRIAL FIBRILLATION N AUTOIMMUNE DISEASE N Gynecological History Statement/Question Response How many live births -1 Date of Last Pap Current Control Method None Date of LMP Obstetrics History GPAL:G 0 P 0 0 0 0 Type Value Multiple Births 0 Full Term 0 Induced 0 Spontaneous 0 Premature 0 Living 0 Ectopics 0 Total 0 Immunizations Vaccine Type Date Status Note Provider Nam e and Address Organization Details Recorded Time HPV9 07/26/2016 completed Anneliese Buckley APRN [address], [place] [address], [place], [address], [facility] [employer] 10/18/2023 09:44:29 HPV9 09/29/2016 vane Buckley APRN [address] [place] [address], [place], [address], [employer] 10/18/2023 09:44:29 Past Encounters Encounter ID Performer Location Encounter Start Date Encounter Closed Date Diagnosis/Indication Diagnosis SNOMED-CT Code Diagnosis ICD10 Code Diagnosis Note [id number] Delfino William MD [facility] [address] [facility] [address] [place] [address] 11/12/2020 00:00:00 11/13/2020 12:09:38 [id number] MD MASSIEL Larose[facility] [address] [place] [address] 11/25/2020 00:00:00 11/25/2020 09:54:54 [id number] Delfino William MD [facility] [address] [address] 12/02/2020 00:00:00 12/02/2020 14:25:08 [id number] Delfino William MD [facility] [place] [address] [facility] [address] [place] [address] 12/15/2020 00:00:00 12/15/2020 16:35:16 [id number] Delfino William MD [facility] [address] [address] 12/30/2020 00:00:00 12/30/2020 14:55:54 [id number] Delfino William MD [facility] [address] [address] 01/27/2021 00:00:00 01/27/2021 14:30:51 [id number] Delfino William MD [facility] [address] [address] 02/10/2021 00:00:00 02/12/2021 19:42:53 [id number] Delfino William MD [facility] [address] [address] 03/03/2021 00:00:00 03/03/2021 16:01:12 [id number] Delfino William MD [facility] [address] [address] 03/31/2021 00:00:00 03/31/2021 15:56:38 [id number] Delfino William MD [facility] [address] [address] 04/28/2021 00:00:00 04/28/2021 17:39:11 [id number] Delfino William MD [facility] [place] [address] [place] [address] 05/26/2021 00:00:00 05/26/2021 12:16:09 [id number] Sondra david MD [facility] Internal Med [facility] [address] [place] [address] 10/18/2023 09:07:21 10/18/2023 09:59:14 Diabetes mellitus screening 945339019 Z13.1 Hyperlipid emia screening 636755945 Z13.220 Screening for disorder 200955470 Z13.9 Thyroid di sorder screening 795932155 Z13.29 Hepatitis C screening 41 0082029 Z11.59 Stricture of esophagus 65763509 K22.2 Asthma 403248871 J45.90 9 [id number] Vidhi Dominguez MD [facility] General Surgery [address] [place] [address] 12/26/2023 11:47:23 12/26/2023 12:19:16 Esophageal dysphagia 90949961 R13.19 [id number] Robbin Olguin MD [facility] Pulmonolo gy [address] [address] 12/24/2023 12:30:48 02/11/2024 09:39:34 Dyspnea on exertion 21684444 R06.09 R05.9 T78.40XA D89.9 [id number] Vidhi Dominguez MD [facility] General Surgery [address] [place] [id number] 01/09/2024 11:00:52 01/09/2024 12:10:43 Esophageal dysphagia [id number] R13.19 Health Concerns Section Related Observation LastModified by Organization Detai ls LastModified Time None Recorded Concern Status LastModified by Organization Details LastModified Time None Recorded Advance Directives Directive None Recorded Payers Encounter Date Sequence Insurance Name Policy Number Policy Quevedo Covered Member ID Quevedo Member ID Guarantor Name 10/18/2023 1 [facility] ON OR AFTER 08/12/20 (MEDICAID REPLACEMENT - HMO) Te Altman [id number] Te Altman 12/24/2023 1 [facility] ON OR AFTER 08/12/20 (MEDICAID REPLACEMENT - HMO) Te Altman [id number] Te Altman 12/26/2023 1 [facility] ON OR AFTER 08/12/20 (MEDICAID REPLACEMENT - HMO) Te Altman [id number] Te Altman 01/09/2024 1 [facility] ON OR AFTER 08/12/20 (MEDICAID REPLACEMENT - HMO) Te Altman [id number] Te Altman Notes Date Note Type Note Provider Name and Address Organization Details Recorded Time 10/18/2023 text/html Te presents to day to establish care as a new patient. She states that she takes albuterol for asthma but does not follow up with pulmonology. Her spouse states that every time she eats, food gets stuck and she chokes. She has been to the ED for this problem. She has not seen a GI for this. Anneliese Buckley APRN [address], [phone], [facility] [employer] 10/18/2023 09:52:59 12/24/2023 text/html Primary care/Ref erring provider: Anneliese Buckley APRN Patient is here to go over shortness of breath evaluation/management. Initial development of shortness of breath: 2010Duration of shortness of breath: 15 yearsCondition of shortness of breath: stableTiming of shortness of breath: noneFrequency: up to 5 times a dayLimits activities: yesAggravating factors: walking long distances, cut grass, strong scentsAlleviating factors: rest Modified [employer] (mMRC) Dyspnea Scale - Grade 2Grade 0 I only get breathless with strenuous exercise .Grade 1 I get short of breath when hurrying on the level or walking up a slight hill .Grade 2 I walk slower than people of the same age on the level because of breathlessness or have to stop for breath when walking at my own pace on the level .Grade 3 I stop for breath after walking about 100 yards or after a few minutes on the level .Grade 4 I am too breathless to leave the house or I am breathless when dressing . Treatment history: Albuterol HFA as needed since 2008 Other symptoms:Drooling: noDysarthria: noNeck pain: noOdynophagia: noDysphagia: yesWeak mastication: noFacial weakness: noNasal speech: noProtruding tongue: noProductive cough: noWheezing: yesChest tightness: yesOrthopnea: noFrequent throat clearing or swallowing: noPalpitations: noHeartburn: noEdema: no Environmental exposures:Nicotine smoke: noneMarijuana smoke: yesPaint: noDye: noDust mites: yesMold: yes 12/2021 - amp basement: noWood burning stove: noAnimal dander: dogCockroaches: noPollen: yesArsenic: noAsbestos: noBeryllium: noCadmium: noChromium: noCoal smoke: noDiesel fumes: noNickel: noSilica: noSoot: no EPWORTH SLEEPINESS SCALE (ESS) CHANCE OF DOZING SCORE0 = would never doze1 = slight chance of dozing2 = moderate chance of dozing3 = high chance of dozing SITUATION AND CHANCE OF DOZINGSitting and reading - 1Watching television - 2Sitting inactive in a public place (e.g. a theater or meeting) - 3As a passenger in a car for an hour without a break - 2Lying down to rest in the afternoon when circumstances permit - 3Sitting and talking to someone - 0Sitting quietly after lunch without alcohol - 1In a car, while stopped for a few minutes in the traffic - 1TOTAL SCORE 13Subjectively, patient has a moderate chance of dozing. Robbin Olguin MD [address] [facility], [address], [place], [address], [employer] [facility] [employer] 12/24/2023 13:11:35 12/26/2023 text/html PT WAS SEEN IN T HE OFFICE TODAY FOR DYSPHAGIA EVALUATION . PT SX ARE TO [facility]INCE 02/2023 . PT ADMITS TO [facility]. PT WAS SEEN IN MULTIPLE ER AND WAS NEVER SCOPED . SHE HAS ASTHMA. SHE IS NOT ON ANY MEDS Vidhi Dominguez MD [address], [address], [place], [address], [facility] [employer] [facility] 12/26/2023 12:47:57 01/09/2024 text/html DEREK WAS SEEN IN THE OFFICE TODAY FOR A F/U. PT IS S/P EGD FOR FOOD IMPACTION DYSPHAGIA . KALIN TEST WAS NEGATIVE . EoE BX WAS NEGATIVE . SHE IS ON PANTOPRAZOLE 40 MG DAILY . SHE IS DOING BETTER X 1 WEEK NOW . Vidhi Dominguez MD [address] [place] [address], [place], [phone], [facility] [employer] [facility] 01/09/2024 12:25:17 OBGyn Episode No OBEpisode recorded.
--- OUTSIDE RECORDS SUMMARY | 2024-06-18 14:42 | XMS_ITS | Data Portability ---
Author Organization [facility] Address [address] [place] [address] Assessment Encounter Date Assessment Date Assessment LastModified by Organization Details LastModified Time 09/18/2018 09/18/2018 Pap at next visit [email or web address] Not available 09/18/2018 17:56:21 Plan of Treatment Reminders Order Date Submit Date Provider Last Modified By Organization Details Last Modified Time Details Appointments None recorded . Lab urinalys is, dipstick 2018 019 ADIEL In-Office Order, Internal Use Only DO Not Attach Compendium DO Not Attach Compendium, Do Not Delete/merge, [id number] 9 19:52:10 pregnanc y test, urine 2016 017 [email or web address] In-Office Order, Internal Use Only DO Not Attach Compendium DO Not Attach Compendium, Do Not Delete/merge, [id number] 7 11:32:21 pap, IG + HPV, cervical 2016 017 ADIEL [facility], [address] [place] [address], [address], [place], [address], 7 06:05:32 pregnanc y test, urine 2016 017 daya In-Office Order, Internal Use Only DO Not Attach Compendium DO Not Attach Compendium, Do Not Delete/merge, [id number] 7 17:11:22 urinalys is, dipstick 2016 017 [email or web address] In-Office Order, Internal Use Only DO Not Attach Compendium DO Not Attach Compendium, Do Not Delete/merge, [id number] 7 17:11:22 bacteria l vaginosi s + vaginiti s panel, vaginal - Z11.3 2016 017 ADIEL [facility], [address], [address], [place], [address], 7 06:04:44 HSV (1+2) DNA, qual, PCR, unspecif ied specimen - Z11.3 2016 017 [facility], [address], [address], [place], [address], 7 06:04:44 culture, vaginal/ rectal, streptoc occus group B - Z11.3 2016 017 [facility]EL [facility], [address], [place], [address], 7 06:04:45 RPR (rapid plasma reagin), serum 2016 017 ADIEL [facility], [address], [place], [address], 7 08:33:34 hsv-2 (herpes simplex virus type 2) igg Ab, serum 2016 017 [facility], [address], [place], [address], 7 08:33:35 hepatiti s panel (A+B+C), acute, serum 2016 017 ADIEL [facility], [address], [place], [address], 7 08:33:32 hepatiti s B surface Ab, qualitat kenya, serum 2016 017 [facility], [address], [address], [place], [address], 7 08:33:33 HIV 1+2 AB + HIV 1 p24 Ag, qualitat kenya immunoas say, serum 2016 017 [facility], [address] [place] [address], [place], [address], 7 08:33:34 Referral None recorded . Procedures None recorded . Surgeries None recorded . Imaging None recorded . Medication Orders acetamin ophen 300 mg-codei ne 30 mg tablet 2019 020 [facility]67604, [address], [place], [id number], 3 12:13:42 naproxen 500 mg tablet 2019 020 [facility] #54375, [address], [place], [id number], 3 12:14:00 ProAir HFA 90 mcg/actu ation aerosol inhaler 2019 020 [facility] #47345, [address], [place], [id number], 3 12:13:44 acetamin ophen 300 mg-codei ne 30 mg tablet 2019 020 [facility] #00235, [address], [place], [id number], 3 12:13:42 sertrali ne 25 mg tablet 2018 019 [facility], [address], [place], [id number], 0 14:10:47 norethin drone acetate 5 mg tablet 2018 019 [facility] #54707, [address], [place], [id number], 3 12:14:05 ibuprofe n 800 mg tablet 2018 019 [facility] #33110, [address], [place], [id number], 3 12:13:55 multivit jara tablet 2018 019 [facility], [address], [place], [id number], 0 14:11:18 Calcium with Vitamin D 600 mg-10 mcg (400 unit) tablet 2018 019 [facility]96865, [address], [place], [id number], 0 14:11:28 03/03 (21) 1 mg-20 mcg tablet 2016 017 [facility], [address], [place], [id number], 9 15:08:06 citalopr am 20 mg tablet 2016 017 [facility], [address] [place] [address], [id number], 9 15:06:48 Patient TargetsNo targets recorded. Patient Instructions Encounter Date Encounter Id Patient Instructions Last Modified By Organization Details Last Modified Time 07/26/2016 [id number] painful menstrua l cramps: care instructions [email or web address] Not available 07/26/2016 17:53:17 learning about mood disorders [email or web address] Not available 07/26/2016 17:53:18 05/23/2019 [id number] get in to see Dr Felicia Llanos ....... [email or web address] Not available 05/27/2019 14:35:07 06/24/2019 [id number] I advised her to see [employer] doctor ....... [email or web address] Not available 06/26/2019 16:45:08 Reason for Referral None Reported. Results Created Date Observation Date Name Description Value Unit Range Abnormal Flag Note LastModifiedBy Organization Detail LastModifiedTime 09/30/19 17 09/29/2016 pregn josselyn test, urine HCG negati ve Not Available In-Office Order Internal Use Only DO Not Attach Compendium DO Not Attach Compendium, Do Not Delete/merge, [id number] 09/29/2016 11:07:42 07/27/19 17 07/26/2016 urina lysis , dipst ick Leukocytes Small Not Available In-Offi ce Order Internal Use Only DO Not Attach Compendium DO Not Attach Compendium, Do Not Delete/merge, [id number] 07/26/2016 15:39:56 07/27/19 17 07/26/2016 urina lysis , dipst ick Nitrite negati ve Not Available In-Office Order Internal Use Only DO Not Attach Compendium DO Not Attach Compendium, Do Not Delete/merge, [id number] 07/26/2016 15:39:56 07/27/19 17 07/26/2016 urina lysis , dipst ick Urobilinogen .2 Not Available In-Of fice Order Internal Use Only DO Not Attach Compendium DO Not Attach Compendium, Do Not Delete/merge, [id number] 07/26/2016 15:39:56 07/27/19 17 07/26/2016 urina lysis , dipst ick Protein 30 Not Available In-Office Order Internal Use Only DO Not Attach Compendium DO Not Attach Compendium, Do Not Delete/merge, [id number] 07/26/2016 15:39:56 07/27/19 17 07/26/2016 urina lysis , dipst ick pH 7.0 Not Available In-Office Order Internal Use Only DO Not Attach Compendium DO Not Attach Compendium, Do Not Delete/merge, [id number] 07/26/2016 15:39:56 07/27/19 17 07/26/2016 urina lysis , dipst ick Blood Hemoly zed: Trace Not Available In-Office Order Internal Use Only DO Not Attach Compendium DO Not Attach Compendium, Do Not Delete/merge, 07/26/2016 15:39:56 07/27/19 17 07/26/2016 urina lysis , dipst ick Specific Ballwin 1.020 Not Available In-Off ice Order Internal Use Only DO Not Attach Compendium DO Not Attach Compendium, Do Not Delete/merge, 07/26/2016 15:39:56 07/27/19 17 07/26/2016 urina lysis , dipst ick Ketone Trace Not Available In-Office Order Internal Use Only DO Not Attach Compendium DO Not Attach Compendium, Do Not Delete/merge, 07/26/2016 15:39:56 07/27/19 17 07/26/2016 urina lysis , dipst ick Bilirubin Negati ve Not Available In-Office Order Internal Use Only DO Not Attach Compendium DO Not Attach Compendium, Do Not Delete/merge, 07/26/2016 15:39:56 07/27/19 17 07/26/2016 urina lysis , dipst ick Glucose Negati ve Not Available In-Office Order Internal Use Only DO Not Attach Compendium DO Not Attach Compendium, Do Not Delete/merge, 07/26/2016 15:39:56 07/27/19 17 07/26/2016 pregn josselyn test, urine HCG negati ve Not Available In-Office Order Internal Use Only DO Not Attach Compendium DO Not Attach Compendium, Do Not Delete/merge, 07/26/2016 15:39:37 07/27/19 17 07/27/2016 hepat itis panel (A+B+ C), acute , serum hep A Ab, IgM NEGATI VE negati ve Not Available [facility] ([facility]) [address], [place], [address], 07/27/2016 08:33:32 07/27/19 17 07/27/2016 hepat itis panel (A+B+ C), acute , serum HBsAg screen NEGATI VE negati ve Not Available [facility] ([facility]) [address] [place], [address], 07/27/2016 08:33:32 07/27/19 17 07/27/2016 hepat itis panel (A+B+ C), acute , serum hep B core Ab, IgM NEGATI VE negati ve Not Available [facility] ([facility]) [address], [place], [address], 07/27/2016 08:33:32 07/27/19 17 07/27/2016 hepat itis panel (A+B+ C), acute , serum hep C virus Ab <0.1 S/co_ ratio 0.0-0. 9 NEGAT KENYA: < 0.8 INDET ERMIN ATE: 0.8 - 0.9 POSIT KENYA: > 0.9 THE CDC RECOM MENDS THAT A POSIT KENYA HCV ANTIB ONOFRE RESUL T BE FOLLO WED UP WITH A HCV NUCLE IC ACID AMPLI FICAT ION TEST (5507 13). Not Available [facility] ([facility]) [address] [facility], [place], [address], 07/27/2016 08:33:32 07/27/1907/27/2016 hepat itis B surfa ce Ab, quali tativ e, serum hep B surface Ab, qual NON REACTI VE NON REACT KENYA: INCON SISTE NT WITH IMMUN ITY, LESS THAN 10 MIU/M L REACT KENYA: CONSI STENT WITH IMMUN ITY, GREAT ER THAN 9.9 MIU/M L Not Available [facility] ([facility]) [address] [facility], [place], [address], 07/27/2016 08:33:33 07/27/1907/27/2016 RPR (rapi d plasm a reagi n), serum RPR NON REACTI VE non reacti ve Not Available [facility] ([facility]) [address] [place], [address], 07/27/2016 08:33:34 07/27/1907/27/2016 HIV 1+2 AB + HIV 1 p24 Ag, quali tativ e immun oassa y, serum HIV screen 4TH generation wrfx NON REACTI VE non reacti ve Not Available [facility] ([facility]) [address] [place], [address], 07/27/2016 08:33:34 07/27/1907/27/2016 hsv-2 (herp es simpl ex virus type 2) igg Ab, serum hsv 2 IgG, type spec <0.91 index 0.00-0 .90 NEGAT KENYA <0.91 EQUIV OCAL 0.91 - 1.09 POSIT KENYA >1.09 NOTE: NEGAT KENYA INDIC ATES NO ANTIB ODIES DETEC RADHA TO HSV-2 . EQUIV OCAL MAY SUGGE ST EARLY INFEC TION. IF CLINI KLEVER APPRO PRIAT E, RETES T AT LATER DATE. POSIT KENYA INDIC ATES ANTIB ODIES DETEC RADHA TO HSV-2 . Not Available [facility] ([facility]) [address] [facility] [address], [place], [address], 07/27/2016 08:33:35 07/27/19 17 07/29/2016 bacte rial vagin osis + vagin itis panel , vagin al atopobium vaginae HIGH - 2 score abnormal Not Available [facility] ([facility]) [address] [place], [address], 07/30/2016 06:04:44 07/27/19 17 07/29/2016 bacte rial vagin osis + vagin itis panel , vagin al bvab 2 HIGH - 2 score abnormal Not Available [facility] ([facility]) [address] [place], [address], 07/30/2016 06:04:44 07/27/19 17 07/29/2016 bacte rial vagin osis + vagin itis panel , vagin al megasphaera 1 HIGH - 2 score abnormal CALCU LATE TOTAL SCORE BY JONE Iyer THE 3 INDIV IDUAL BACTE RIAL VAGIN OSIS (BV) MARKE R SCORE S TOGET HER. TOTAL SCORE IS INTER PRETE D FOLLO WS: TOTAL SCORE 0-1: INDIC ATES THE ABSEN CE OF BV. TOTAL SCORE 2: INDET ERMIN ATE FOR BV. ADDIT IONAL CLINI PRASHANTH DATA SHOUL D BE EVALU ATED TO ESTAB MAHI A DIAGN OSIS. TOTAL SCORE 3-6: INDIC ATES THE PRESE NCE OF BV. THIS TEST WAS DEVEL OPED AND ITS PERFO RMANC E SARA CTERI STICS DETER MINED BY myLINGO RP. IT HAS NOT BEEN CLEAR ED OR APPRO TAVO BY THE FOOD AND DRUG ADMIN ISTRA TION. THE FDA HAS DETER MINED THAT SUCH CLEAR ANCE OR APPRO DUNIA IS NOT NECES BRUNILDA. Not Available [facility] ([facility]) [address] [place], [address], 07/30/2016 06:04:44 07/27/19 17 07/30/2016 bacte rial vagin osis + vagin itis panel , vagin al bhavin albicans, ALEX NEGATI VE negati ve Not Available [facility] ([facility]) [address] [place], [address], 07/30/2016 06:04:44 07/27/19 17 07/30/2016 bacte rial vagin osis + vagin itis panel , vagin al bhavin glabrata, ALEX NEGATI VE negati ve THIS TEST WAS DEVEL OPED AND ITS PERFO RMANC E SARA CTERI STICS DETER MINED BY myLINGO RP. IT HAS NOT BEEN CLEAR ED OR APPRO TAVO BY THE FOOD AND DRUG ADMIN ISTRA TION. THE FDA HAS DETER MINED THAT SUCH CLEAR ANCE OR APPRO DUNIA IS NOT NECES BRUNILDA. Not Available [facility] ([facility]) [address] [place], [address], 07/30/2016 06:04:44 07/27/19 17 07/30/2016 bacte rial vagin osis + vagin itis panel , vagin al trich vag by ALEX NEGATI VE negati ve Not Available [facility] ([facility]) [address] [place], [address], 07/30/2016 06:04:44 07/27/19 17 07/30/2016 bacte rial vagin osis + vagin itis panel , vagin al chlamydia trachomatis, ALEX NEGATI VE negati ve Not Available [facility] ([facility]) [address] [place], [address], 07/30/2016 06:04:44 07/27/19 17 07/30/2016 bacte rial vagin osis + vagin itis panel , vagin al neisseria gonorrhoeae, ALEX NEGATI VE negati ve Not Available [facility] ([facility]) [address] [place], [address], 07/30/2016 06:04:44 07/27/19 17 07/28/2016 HSV (1+2) DNA, qual, PCR, unspe cifie d speci men hsv 1 ALEX NEGATI VE negati ve Not Available [facility] ([facility]) [address] [place], [address], 07/30/2016 06:04:44 07/27/19 17 07/28/2016 HSV (1+2) DNA, qual, PCR, unspe cifie d speci men hsv 2 ALEX NEGATI VE negati ve Not Available [facility] ([facility]) [address] [place], [address], 07/30/2016 06:04:44 07/27/19 17 07/28/2016 cultu re, vagin al/re ctal, strep tococ cus group B strep gp B ALEX POSITI VE negati ve abnormal CENTE RS FOR DISEA SE CONTR OL AND PREVE NTION (CDC) AND AMERI CAN CONGR ESS OF OBSTE TRICI ANS AND GYNEC OLOGI STS (ACOG ) GUIDE LINES FOR PREVE NTION OF PERIN ATAL GROUP B STREP TOCOC PRASHANTH (GBS) DISEA SE SPECI FY CO-CO LLECT ION OF A VAGIN AL AND RECTA L SWAB SPECI MEN TO MAXIM IZE SENSI TIVIT Y OF GBS DETEC TION. PER THE CDC AND ACOG, SWABB ING BOTH THE LOWER VAGIN A AND RECTU M SUBST ANTIA LLY INCRE ASES THE YIELD OF DETEC TION GABRIEL RED WITH SAMPL ING THE VAGIN A ALONE . PENIC ILLIN G, AMPIC ILLIN , OR CEFAZ SEBASTIAN ARE INDIC ATED FOR INTRA PARTU M PROPH YLAXI S OF PERIN ATAL GBS COLON IZATI ON. REFLE X SUSCE PTIBI LITY TESTI NG SHOUL D BE PERFO RMED PRIOR TO USE OF CLIND AMYCI N ONLY ON GBS ISOLA NUZHAT FROM PENIC ILLIN -PAULINA RGIC WOMEN WHO ARE CONSI DERED A HIGH RISK FOR ANAPH YLAXI S. TREAT MENT WITH VANCO MYCIN WITHO UT ADDIT IONAL TESTI NG IS WARRA NTED IF RESIS TANCE TO CLIND AMYCI N IS NOTED . Not Available [facility] ([facility]) [address] [facility], [place], [address], 07/30/2016 06:04:45 07/27/19 17 07/28/2016 pap, IG + HPV, cervi prashanth diagnosis: COMMEN T BOLIVAR ZAMBRANO FOR INTRA EPITH ELIAL LESIO N AND ELLEN BRYAN . Not Available [facility] ([facility]) [address], [place], [address], 08/01/2016 06:05:32 07/27/19 17 07/28/2016 pap, IG + HPV, cervi prashanth specimen adequacy: COMMEN T SATIS FACTO RY FOR EVALU ATION . ENDOC ERVIC AL AND/O R SQUAM OUS METAP LASTI C CELLS (ENDO CERVI PRASHANTH COMPO NENT) ARE PRESE NT. Not Available [facility] ([facility]) [address], [place], [address], 08/01/2016 06:05:32 07/27/19 17 07/28/2016 pap, IG + HPV, cervi prashanth clinician provided ICD10: COMMEN T Z20.2 Z01.4 19 Not Available [facility] ([facility]) [address] [place], [address], 08/01/2016 06:05:32 07/27/19 17 07/28/2016 pap, IG + HPV, cervi prashanth performed by: ROLANDO HARDY, CYTOT ECHSUKUMAR Gasca (ASCP ) Not Available [facility] ([facility]) [address] [place], [address], 08/01/2016 06:05:32 07/27/19 17 07/28/2016 pap, IG + HPV, cervi prashanth . . Not Available [facility] ([facility]) [address] [place], [address], 08/01/2016 06:05:32 07/27/19 17 07/28/2016 pap, IG + HPV, cervi prashanth note: ROLANDO Gasca THE PAP SMEAR IS A SCREE JUSTICE TEST DESIG KATHI TO AID IN THE DETEC TION OF MARISELA LIGNA NT AND MALIG NANT CONDI TIONS OF THE UTERI NE CERVI X. IT IS NOT A DIAGN OSTIC PROCE DURE AND SHOUL D NOT BE USED THE SOLE MEANS OF DETEC TING CERVI PRASHANTH CANCE R. BOTH FALSE -POSI TIVE AND FALSE -NEGA TIVE REPOR TS DO OCCUR . Not Available [facility] ([facility]) [address] [place], [address], 08/01/2016 06:05:32 07/27/19 17 07/28/2016 pap, IG + HPV, cervi prashanth test methodology: ROLANDO Gasca THIS LIQUI D BASED THINP REP(R ) PAP TEST WAS SCREE KATHI WITH THE USE OF AN IMAGE GUIDE Sandro Grossman Not Available [facility] ([facility]) [address] [place], [address], 08/01/2016 06:05:32 07/27/19 17 07/31/2016 pap, IG + HPV, cervi prashanth HPV aptima NEGATI VE negati ve THIS TEST DETEC TS FOURT EEN HIGH- RISK HPV TYPES (16/1 8/31/ 33/35 /39/4 5/ 51/52 /56/5 8/59/ 66/68 ) WITHO PHUC SEQUEIRA . Not Available [facility] ([facility]) [address] [facility], [place], [address], 08/01/2016 06:05:32 09/19/1909/18/2018 urina lysis , dipst ick Leukocytes Negati ve Not Available In-Office Order Internal Use Only DO Not Attach Compendium DO Not Attach Compendium, Do Not Delete/merge, [id number] 09/18/2018 15:14:09/19/1909/18/2018 urina lysis , dipst ick Nitrite negati ve Not Available In-Office Order Internal Use Only DO Not Attach Compendium DO Not Attach Compendium, Do Not Delete/merge, [id number] 09/18/2018 15:14:19 09/19/1909/18/2018 urina lysis , dipst ick Urobilinogen .2 Not Available In-Of fice Order Internal Use Only DO Not Attach Compendium DO Not Attach Compendium, Do Not Delete/merge, [id number] 09/18/2018 15:14:19 09/19/1909/18/2018 urina lysis , dipst ick Protein 30 Not Available In-Office Order Internal Use Only DO Not Attach Compendium DO Not Attach Compendium, Do Not Delete/merge, [id number] 09/18/2018 15:14:19 09/19/1909/18/2018 urina lysis , dipst ick pH 5.5 Not Available In-Office Order Internal Use Only DO Not Attach Compendium DO Not Attach Compendium, Do Not Delete/merge, [id number] 09/18/2018 15:14:09/19/1909/18/2018 urina lysis , dipst ick Blood Non-He molyze d: Trace Not Available In-Office Order Internal Use Only DO Not Attach Compendium DO Not Attach Compendium, Do Not Delete/merge, [id number] 09/18/2018 15:14:19 09/19/1909/18/2018 urina lysis , dipst ick Specific Ballwin 1.030 Not Available In-Off ice Order Internal Use Only DO Not Attach Compendium DO Not Attach Compendium, Do Not Delete/merge, [id number] 09/18/2018 15:14:19 09/19/1909/18/2018 urina lysis , dipst ick Ketone Negati ve Not Available In-Office Order Internal Use Only DO Not Attach Compendium DO Not Attach Compendium, Do Not Delete/merge, [id number] 09/18/2018 15:14:19 09/19/1909/18/2018 urina lysis , dipst ick Bilirubin Negati ve Not Available In-Office Order Internal Use Only DO Not Attach Compendium DO Not Attach Compendium, Do Not Delete/merge, [id number] 09/18/2018 15:14:19 09/19/1909/18/2018 urina lysis , dipst ick Glucose Negati ve Not Available In-Office Order Internal Use Only DO Not Attach Compendium DO Not Attach Compendium, Do Not Delete/merge, [id number] 09/18/2018 15:14:19 09/19/1909/18/2018 urina lysis , dipst ick Appearance Slight ly Cloudy Not Available In-Office Order Internal Use Only DO Not Attach Compendium DO Not Attach Compendium, Do Not Delete/merge, [id number] 09/18/2018 15:14:19 09/19/1909/18/2018 urina lysis , dipst ick Color Yellow Not Available In-Office Order Internal Use Only DO Not Attach Compendium DO Not Attach Compendium, Do Not Delete/merge, [id number] 09/18/2018 15:14:19 10/24/1910/22/2020 XR, ankle No observ ation record ed. [facility] [address] [place], [address], 11/23/2020 11:10:08 10/24/19 21 10/22/2020 XR, knee No observ ation record ed. [facility] [address] [place], [address], 11/09/2020 10:21:05 11/24/19 21 11/23/2020 MRI, knee, w/o contr ast No observ ation record ed. [address] [place], [address], 12/19/2020 08:44:19 12/22/19 21 11/23/2020 MRI, knee, w/ contr ast No observ ation record ed. [facility] [address] [place], [address], 01/14/2021 15:20:50 01/06/20 21 01/04/2021 XR, ankle No observ ation record ed. [facility] [address] [place], [address], 01/17/2021 13:21:11 01/22/20 21 01/21/2021 XR, finge r(s), 2 or more view No observ ation record ed. [address] [place], [address], 02/14/2021 20:59:10 03/14/19 22 03/14/2021 MRI, ankle , w/o contr ast No observ ation record ed. [facility] [address] [place], [address], 04/12/2021 09:30:10 06/26/19 22 06/25/2021 XR, ankle , 3 or more view No observ ation record ed. [address] [facility] [address] [place], [address], 07/09/2021 21:59:28 10/29/19 22 10/27/2021 XR, knee, 3 view No observ ation record ed. [place] [address], [place], [address], 11/03/2021 21:41:39 Result Notes None recorded. Problems Name Problem SNOMED Code Status Onset Date Resolution Date Notes Provider Name and Address Organization Details Recorded Time Endometriosis (clinical) 664437773 Active 2018 Not Available [facility] 2 13:29:07 Asthma 773345058 Active 2019 Not Available [facility] 2 13:29:07 Pharyngitis 866819625 Active Not Available [facility] 2 13:29:07 Kidney stone 52393154 Active Not Available [facility] 2 13:29:07 Problem Notes None recorded. Procedures Surgical History Date Name Laterality Status Provider Name and Address Organization Details Recorded Time 07/26/2016 Date of Last Pap Smear completed Diane Pineda MA [place] - [place] 07/26/2016 15:10:14 Imaging Results Imaging Date Name Status LastModified by Organiz ation Details LastModified Time 10/22/2020 XR, ankle completed [facility] [address] [place], [address], 11/23/2020 11:10:08 10/22/2020 XR, knee completed [facility] [address] [place], [address], 11/09/2020 10:21:05 11/23/2020 MRI, knee, w/o contrast completed [address] [place], [address], 12/19/2020 08:44:19 11/23/2020 MRI, knee, w/ contrast completed [facility] [address] [place], [address], 01/14/2021 15:20:50 01/04/2021 XR, ankle completed [facility] [address] [place], [address], 01/17/2021 13:21:11 01/21/2021 XR, finger(s), 2 or more view completed [address] [place], [address], 02/14/2021 20:59:10 03/14/2021 [facility] [address] [place], [address], 04/12/2021 09:30:10 06/25/2021 XR, ankle, 3 or more view completed [address] [facility] [address] [place], [address], 07/09/2021 21:59:28 10/27/2021 XR, knee, 3 view completed [address] [facility] [address], [address], 11/03/2021 21:41:39 Procedure Notes None recorded. Medical Equipment None Reported. Allergies Allergen ID Allergen Name Allergen Category Reaction Reaction Severity Criticality Documentation Date Start Date Code Code System Note Provider Name and Address Organization Details Recorded Time 71593 epinephri ne medicatio n anaphylax is Not available Not available 07/23/2014 3992 RxNorm Laura Mir MA [facility], [place] - SIF 5 14:41:02 Medications Name Sig Start Date Stop Date Status Note LastModified by Organization Details LastModified Time multivitami n tablet Take 1 tablet every day by oral route. 05/22 completed Not Available Not Available Not Available amoxicillin 500 mg capsule 05/22 completed Not Available Not Available Not Available oxcarbazepi ne 150 mg tablet 09/18 completed Not Available Not Available Not Available trazodone 50 mg tablet 05/22 completed Not Available Not Available Not Available ibuprofen 800 mg tablet TAKE 1 TABLET BY MOUTH THREE TIMES DAILY NEEDED FOR CRAMPS 03/29 completed Not Available Not Available Not Available sulfamethox azole 400 mg-trimetho prim 80 mg tablet 09/18 completed Not Available Not Available Not Available hydrocodone 5 mg-acetamin ophen 325 mg tablet 03/29 completed Not Available Not Available Not Available bacitracin 500 unit/gram eye ointment 03/29 completed Not Available Not Available Not Available ondansetron HCl 4 mg tablet Take 1 tablet every 8 hours by oral route as needed. 09/18 completed Not Available Not Available Not Available prednisone 20 mg tablet 03/29 completed Not Available Not Available Not Available Pyridium 200 mg tablet Take 1 tablet 3 times a day by oral route for 2 days. 09/18 completed Not Available Not Available Not Available penicillin V potassium 500 mg tablet Take 1 tablet twice a day by oral route for 10 days. 09/18 completed Not Available Not Available Not Available metronidazo le 500 mg tablet Take 1 tablet twice a day by oral route for 10 days. 09/18 completed Not Available Not Available Not Available acetaminoph en 300 mg-codeine 30 mg tablet Take 1 tablet twice a day by oral route as needed for 30 days. 03/29 completed Not Available Not Available Not Available sulfamethox azole 800 mg-trimetho prim 160 mg tablet active Not Available Not Available Not Available tramadol 50 mg tablet 05/22 completed on tyl #3 Not Available Not Available Not Available amoxicillin 500 mg tablet Take 2 tablets every 12 hours by oral route for 10 days. 09/18 completed Not Available Not Available Not Available cefadroxil 500 mg capsule active Not Available Not Available Not Available meloxicam 7.5 mg tablet 10/23 completed Not Available Not Available Not Available citalopram 20 mg tablet Take 1 tablet every day by oral route. 09/18 completed Not Available Not Available Not Available prednisolon e acetate 1 % eye drops,suspe nsion 03/29 completed Not Available Not Available Not Available lorazepam 0.5 mg tablet 03/29 completed Not Available Not Available Not Available doxycycline monohydrate 100 mg capsule 09/18 completed Not Available Not Available Not Available cephalexin 500 mg capsule 03/29 completed Not Available Not Available Not Available erythromyci n 5 mg/gram (0.5 %) eye ointment 06/23 completed Not Available Not Available Not Available sertraline 25 mg tablet Take 1 tablet every day by oral route. 05/22 completed Not Available Not Available Not Available norethindro ne acetate 5 mg tablet TAKE 1 TABLET BY MOUTH EVERY NIGHT AT BEDTIME 03/29 completed Not Available Not Available Not Available ibuprofen 600 mg tablet Take 1 tablet 3 times a day by oral route as needed for 30 days. 09/18 completed Not Available Not Available Not Available albuterol sulfate HFA 90 mcg/actuati on aerosol inhaler Inhale 2 puffs 3 times a day by inhalatio n route as needed for 30 days. 03/29 completed Not Available Not Available Not Available naproxen 500 mg tablet Take 1 tablet twice a day by oral route with meals for 30 days. 03/29 completed Not Available Not Available Not Available metoclopram rick 10 mg tablet Take 1 tablet 4 times a day by oral route. 09/18 completed Not Available Not Available Not Available hydroxyzine pamoate 25 mg capsule 09/18 completed Not Available Not Available Not Available neomycin 3.5 mg/g-polymy mendel B 10,000 unit/g-dexa meth 0.1 % eye oint 03/29 completed Not Available Not Available Not Available Microgestin 1/20 (21) 1 mg-20 mcg tablet Take 1 tablet every day by oral route. 09/18 completed Not Available Not Available Not Available nitrofurant oin monohydrate /macrocryst als 100 mg capsule 05/22 completed Not Available Not Available Not Available Oysco 500/D 500 mg-5 mcg (200 unit) tablet 03/29 completed Not Available Not Available Not Available Calcium with Vitamin D 600 mg-10 mcg (400 unit) tablet Take 1 tablet twice a day by oral route. 05/22 completed Not Available Not Available Not Available Vitals Date Recorded Body weight Body mass index (BMI) Body height Systolic blood pressure Diastolic blood pressure Provider Name and Address Organization Details Last Updated DateTime 09/18/2018 87324.93 g 28.7 kg/m2 162.56 cm 100 mm[Hg] 54 mm[Hg] Jagjit Romi [place] - [facility] 9 15:05:57 Date Recorded Body height Provider Name an d Address Organization Details Last Updated DateTime 05/23/2019 162.56 cm Anjelica De La Marlon blackwell [place] - [facility] 05/23/2019 14:10:24 Date Recorded Body height Provider Name an d Address Organization Details Last Updated DateTime 06/24/2019 162.56 cm Anjelica Lang MA [facility] 06/24/2019 11:53:16 Date Recorded Body height Body mass index (BMI) Body weight Systolic blood pressure Diastolic blood pressure Provider Name and Address Organization Details Last Updated DateTime 07/26/2016 160.02 cm 22.7 kg/m2 99902.82 g 104 mm[Hg] 66 mm[Hg] Diane Pineda MA [facility] 7 15:22:13 Date Recorded Body height Body mass index (BMI) Body weight Systolic blood pressure Diastolic blood pressure Provider Name and Address Organization Details Last Updated DateTime 09/29/2016 160.02 cm 22.7 kg/m2 15859.82 g 102 mm[Hg] 74 mm[Hg] Diane Pineda MA [facility] 7 11:25:52 Social History Question Answer Notes LastModified by Organizat ion Details LastModified Time Tobacco Smoking Status Former Smoker Quit 3 months ago Anjelica Hagan MA [facility], [facility] 05/23/2019 14:12:11 Do You Have An Advance Directive? No Information not available 07/26/2016 What Is Your Level Of Alcohol Consumption? None Information not available 07/23/2014 Are You Blind Or Do You Have Difficulty Seeing? No Information not available 07/23/2014 Is Blood Transfusion Acceptable In An Emergency? No Information not available 07/26/2016 What Is Your Level Of Caffeine Consumption? Heavy Information not available 07/23/2014 How Much Tobacco Do You Chew? None Information not available 07/23/2014 Are You Deaf Or Do You Have Serious Difficulty Hearing? No Information not available 07/23/2014 What Type Of Diet Are You Following? REGULAR Underweight Information not available 07/23/2014 Which Illicit Or Recreational Drugs Have You Used? Marijuana Information not available 07/23/2014 Education 12 Information not available 07/23/2014 What Is Your Occupation? Unemployed Information not available 07/26/2016 Are There Any Guns Present In Your Home? No Information not available 07/23/2014 Hard Of Hearing Or Deaf In One Or Both Ears? No Information not available 07/23/2014 Legally Blind In One Or Both Eyes? No Information not available 07/23/2014 Live Alone Or With Others? With Others Information not available 07/26/2016 Marital Status Single Informatio n not available 07/23/2014 What Was The Date Of Your Most Recent Tobacco Screening? 05/23/2019 Information not available 05/23/2019 How Many Children Do You Have? 0 Information not available 07/26/2016 Performs Monthly Self-breast Exam? No Discussed Self Breast Exams C Pt, Pt Given Info On Breast Exams, Cb-rma Information not available 07/26/2016 What Is Your Relationship Status? Single Information not available 07/26/2016 Seat Belts Used Routinely Yes Information not available 07/23/2014 Are You Sexually Active? No Information not available 07/26/2016 Smoke Alarm In Home Yes Information not available 07/23/2014 At What Age Did You Start Smoking Tobacco? 18 Information not available 07/23/2014 General Stress Level High Information not available 07/23/2014 Do You Use Sunscreen Routinely? No Information not available 07/23/2014 Has Tobacco Cessation Counseling Been Provided? Yes [email or web address] Information not available 09/18/2018 On What Date Was Tobacco Cessation Counseling Provided? 05/23/2019 Information not available 05/23/2019 Sex: Unknown Functional Status Question Answer Note LastModified by Organization D etails LastModified Time Do you have difficulty walking or climbing stairs? No Information not available 07/23/2014 Do you have difficulty doing errands alone? No Information not available 07/23/2014 Do you have difficulty dressing or bathing? No Information not available 07/23/2014 What is your exercise level? None Information not available 07/23/2014 Mental Status Question Answer Note LastModified by Organization D etails LastModified Time Do you have difficulty concentrating, remembering or making decisions? Yes Information no t available 07/23/2014 Family History Relationship Description Onset Age of this Age Resolved Age Notes LastModified by Organization Details LastModified Time Mother Asthma Not available 07/23/2014 14:41:02 Mother Hyperchlarissa gray Not available 2014 14:41:02 Mother Hypertensive disorder Not available 2014 14:41:02 Maternal Grandmother Jose [email or web address] Not available 2014 14:41:02 Maternal Grandmother Hypertensive disorder Not available 2014 14:41:02 Medical History Condition Response Ovarian Cancer N Diabetes N High Blood Pressure N Headaches Y Kidney or Bladder Problems Y Asthma Y Lung Disease N Allergies Y Gynecological History Statement/Question Response Flow Heavy STIs/STDs N HPV Vaccine No Duration of Flow (days) 5 Age at Menarche 10 Current Control Method None Frequency of Cycle (Q days) 28 Sexually Active? Y Menses Monthly Y Date of Last Pap Smear 07/26/2016 Sexual Problems? N LMP Approximate Desired Control Method Unknown Obstetrics History GPAL:G 0 P 0 0 0 0 Type Value Multiple Births 0 Full Term 0 Induced 0 Spontaneous 0 Premature 0 Living 0 Ectopics 0 Total 0 Immunizations Vaccine Type Date Status Note Provider Nam e and Address Organization Details Recorded Time HPV9 07/26/2016 completed Not Available [facility] 03/01/2019 02:33:32 HPV9 09/29/2016 completed Not Available [facility] 03/01/2019 02:41:26 Past Encounters Encounter ID Performer Location Encounter Start Date Encounter Closed Date Diagnosis/Indication Diagnosis SNOMED-CT Code Diagnosis ICD10 Code Diagnosis Note [id number] ABIGAIL Mai (Adult Med) [address] [place] [address]457-148 0 07/23/2014 13:56:24 07/23/2014 15:02:21 Pharyngitis 610305769 Kidney stone [id number] MD Shady Crews (FIELD ASSEMBLY SUPERVISOR) [address] [place] [address] 07/26/2016 14:33:02 07/26/2016 16:12:05 Gynecologic examination 51855153 Z01.419 Exposure t o sexually transmissible disorder 592126914 Z20.2 Administra tion of viral vaccine 59197951 Z23 Dysmenorrhea 865220344 N 94.6 Depressive disorder 3548 9007 F32.1 [id number] MD Shady Crews (FIELD ASSEMBLY SUPERVISOR) [address] [place] [address]16-402 0 09/29/2016 10:55:41 09/29/2016 11:22:35 Active or passive immunization 756665947 Z23 [id number] MD Shady Crews (FIELD ASSEMBLY SUPERVISOR) [address] [place] [address]49[address]707 0 09/18/2018 14:24:02 09/20/2018 13:34:07 Family planning surveillance 045205929 Z30.09 Positive s creening for depression on PHQ-9 (Patient Health Questionnaire 9) 4366835673 47854 Z13.89 Primary dysmenorrhea 657 64721 N94.4 [id number] ABIGAIL Mai (Adult Med) [address] [place] [address]395[address] 0 05/23/2019 14:01:51 05/23/2019 14:26:45 Endometriosis (clinical) 410473865 N80.9 Asthma 373667035 J45.90 [id number] MD Shady Corley (Adult Med) [address] [place] [address]54[address] 0 06/24/2019 09:29:06 06/24/2019 12:35:05 Endometriosis (clinical) 431043432 N80.9 Asthma 313308643 J45.90 9 Health Concerns Section Related Observation LastModified by Organization Detai ls LastModified Time None Recorded Concern Status LastModified by Organization Details LastModified Time None Recorded Advance Directives Directive N: Payers Encounter Date Sequence Insurance Name Policy Number Policy Quevedo Covered Member ID Quevedo Member ID Guarantor Name 07/26/2016 1 [facility] PRIOR TO 08/12/2020 (MEDICAID REPLACEMENT - HMO) Te Altman [id number] Te Altman 09/29/2016 1 [facility] PRIOR TO 08/12/2020 (MEDICAID REPLACEMENT - HMO) Te Altman [id number] Te Altman 09/18/2018 1 [facility] PRIOR TO 08/12/2020 (MEDICAID REPLACEMENT - HMO) Te Agapito [id number] Te Altman 05/23/2019 1 [facility] PRIOR TO 08/12/2020 (MEDICAID REPLACEMENT - HMO) Te Agapito [id number] Te Altman 06/24/2019 1 [facility] PRIOR TO 08/12/2020 (MEDICAID REPLACEMENT - HMO) Te Agapito [id number] Te Altman Notes Date Note Type Note Provider Name and Address Organization Details Recorded Time 07/26/2016 text/html Annual GYNReport ed bypatient.History:n o gynecologic complaints Menstrual cycle:Severe dysmenorrhea Urinary symptoms:No hematuria; No incontinence Vulva:No genital lesion Vagina:Normal vaginal discharge Breast:No breast pain; No breast lump; No nipple discharge Current Contraception: control not practiced Sexual complaints:No sexual complaints; No pain during intercourse; Normal libido Menopausal Symptoms:No menopausal symptoms; Normal vaginal lubrication Psychological symptoms:No depression; No anxiety; No PMDD Preventive measures:Encourage self breast examination; Encourage regular exercise; Encourage no tobacco use; Encourage regular mammograms starting age 40; Followed with Q3 year pap smear and high risk HPV typing 21 yo AAF G0 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 DUANE Rashid 07/26/2016 17:53:52 09/18/2018 text/html Patient is a 23 year old who presents to discuss endometriosis. She reports that she was diagnosed four years ago but feels that her pain has been worsening recently. She notes that she had to go to the about three weeks ago due to excruciating lower abdominal pain closely related to her menstrual cycle. She denies any associated dyspareunia, dyschezia, or dysuria. She currently takes Tramadol for her pain which provides some relief as it allows her to sleep but she would like to discuss further treatment options. DUANE Rashid 09/19/2018 17:55:35 05/23/2019 text/html Has endometriosi s , pain is excruciating .... Tyl #3 is what works best, was seeing Dr. Llanos ... Abdoulaye Laurent PA-C Attn: Accounting,[address] , [place], [address], [facility] 05/27/2019 14:35:28 06/24/2019 text/html It's that time o f the month , her endometriosis is flaring .... needs Tyl # 3, again ....she has not made an appointment to see Dr. Llanos .... yet ... Abdoulaye Laurent PA-C Attn: Accounting[address] , [place], [address], [facility] 06/26/2019 16:45:34 OBGyn Episode No OBEpisode recorded.
--- OUTSIDE RECORDS SUMMARY | 2024-06-18 14:42 | XMS_ITS | Clinical Summary ---
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 Gender Identity Not on file Sexual Orientation Not on file Plan of Treatment Health Maintenance Due Date Last Done Comments Cervical Cancer Screening Pa p Smear (Age 30 to 64) Every 3 Years 1994 Annual Physical 1997 Hepatitis C 02/27/2012 DTaP, Tdap and Td Vaccines ( 1 - Tdap) 2013 Hepatitis B Vaccines (1 of 3 - 19+ 3-dose series) 2013 COVID-19 Vaccine (2023-2 5 season) 2023 Cervical Cancer Screening Pa p with HPV Testing (Age 30 to 64) Every 5 Years 02/27/2024 Cervical Cancer Screening with HPV 02/27/2024 HPV Vaccines Aged Out No longer eligi ble based on patient's age to complete this topic Meningococcal B Vaccine Aged Out No l onger eligible based on patient's age to complete this topic Meningococcal Vaccine Aged Out No freeman kvng eligible based on patient's age to complete this topic Pneumococcal Vaccine: Pediat rics (0 to 5 Years) and At-Risk Patients (6 to 49 Years) Aged Out No longer eligible b ased on patient's age to complete this topic RSV Immunizations Under 20 Months Aged Out No longer eligible based on patient's age to complete this topic
--- OUTSIDE RECORDS SUMMARY | 2024-06-18 14:42 | XMS_ITS | Clinical Summary ---
Author Organization [facility] Address [address] [facility] [place] [address] Care Team Providers Care Rag Willow Operator Name Role Phone Unavailable Primary Care Provider Unavailabl e Allergies Active Allergy Reactions Criticality Noted Date Comments Epinephrine Other (See Comments) High 2023 Per pt, cardiac arrest when I was 11. Medications ibuprofen (MOTRIN) 600 mg tablet Take 1 Tablet (600 mg) by mouth every 6 hours as needed for mild pain. 30 Tablet 2023 5:58 PM CAN TESTER 4 Active albuterol sulfate HFA 90 mcg/actuation aerosol inhaler Take 2 Puffs by inhalation every 4 hours as needed for Wheezing or Shortness of Breath. 8.5 Gram 03/01/2023 12:26 PM CAN TESTER 4 Active Encounters Date Type Department Care Team Description 05/06/2024 External Device Data [facility] ABSTRACTION Provider, Abstract 05/06/2024 External Device Data [facility] ABSTRACTION Provider, Abstract 04/15/2024 External Device Data [facility] ABSTRACTION Provider, Abstract 03/25/2024 External Device Data [facility] ABSTRACTION Provider, Abstract from Last 3 Months Social History Tobacco Use Types Packs/Day Years Used Date Smoking Tobacco: Never Smokeless Tobacco: Never Tobacco Cessation:Counseling Given: Not Answered Alcohol Use Standard Drinks/Week Comments Not Currently 0 (1 standard drink = 0.6 oz pur e alcohol) Feeling Safe Answer Date Recorded Are you in a relationship wi th someone who hurts you emotionally and/or physically? No 08/26/2023 Comments No Sex and Gender Information Value Date Recorded Sex Assigned at Not on file Legal Sex Female 3:22 PM CAN TESTER Gender Identity Not on file Sexual Orientation Not on file Last Filed Vital Signs Vital Sign Reading Time Taken Comments Blood Pressure 103/72 08/26/2023 12:00 PM CDT Pulse 63 08/26/2023 12:00 PM CDT Temperature 36.8 C (98.3 F) 08/26/2023 7:21 AM CDT Respiratory Rate 18 08/26/2023 8:57 AM CDT Oxygen Saturation 100% 08/26/2023 12:00 PM CDT Inhaled Oxygen Concentration - - Weight 81.6 kg (180 lb) 08/14/2023 12:11 PM CDT Height 162.6 cm (5' 4 ) 08/14/2023 12:11 PM CDT Body Mass Index 30.9 08/14/2023 12:11 PM CDT Plan of Treatment Health Maintenance Due Date Last Done Comments DTAP/TDAP/TD VACCINES (1 - Tdap) 2013 HEPATITIS B VACCINES (1 of 3 - 19+ 3-dose series) 2013 HPV/Cotest (21-29) 2015 HPV VACCINES (3 - 3-dose series) 01/25/2017 09/30/19 17, 07/26/2016 INFLUENZA VACCINE (#1) 2023 CERVICAL CANCER SCREENING 02/27/2024 HPV/Cotest (30-65) 02/27/2024 PAP SMEAR 02/27/2024 Insurance [facility] [employer] Commercial [facility] MEDICAID
--- OUTSIDE RECORDS SUMMARY | 2024-06-18 14:42 | XMS_ITS | Referral Summary ---
Author Organization [facility] Address [address] [place] [address] Care Team Providers Care Fourdrinier Machine Operator Name Role Phone Jan Mckinnon MD Primary Care Provider [phone] Allergies Active Allergy Reactions Criticality Noted Date Comments Epinephrine Other Unknown 04/02/2022 Chilli powder. Medications naproxen (NAPROSYN) 500 mg tablet Take 1 tablet (500 mg total) by mouth 2 (two) times a day Take with food. 14 tablet 4 Active orphenadrine ER (NORFLEX) 100 mg 12 hr tabletIndicatio ns:Muscle Spasm Take 1 tablet (100 mg total) by mouth 2 (two) times a day 14 tablet 4 Active lidocaine (LIDODERM) 5 % Apply 1 patch topically daily Remove after 12 hours (need 12 hour patch free period). 30 patch 4 Active Social History Tobacco Use Types Packs/Day Years Used Date Smoking Tobacco: Never Assessed Personal Safety Answer Date Recorded Have you ever been in or are you currently in a harmful physical or emotional relationship or is someone making you feel afraid or unsafe? Denies 08/09/2023 Comments No Sex and Gender Information Value Date Recorded Sex Assigned at Not on file Legal Sex Female 8:50 PM BLADDER TIER Gender Identity Not on file Sexual Orientation Not on file Last Filed Vital Signs Vital Sign Reading Time Taken Comments Blood Pressure 117/67 08/09/2023 10:38 PM CDT Pulse 53 08/09/2023 10:38 PM CDT Temperature 37 C (98.6 F) 08/09/2023 7:13 PM CDT Respiratory Rate 18 08/09/2023 10:38 PM CDT Oxygen Saturation 100% 08/09/2023 10:38 PM CDT Inhaled Oxygen Concentration - - Weight 81.6 kg (180 lb) 08/09/2023 7:11 PM CDT Height 162.6 cm (5' 4 ) 04/02/2022 11:20 AM BLADDER TIER Body Mass Index 30.9 04/02/2022 11:20 AM BLADDER TIER Plan of Treatment Not on file Insurance Member Subscriber Plan / Payer (Ef fective 2020-Present) Name:Te Altman Relation to Subscriber:Self Name:Te Altman Payer ID:[id number] (NAIC) Group ID:Not on file Type:MEDICAID RISK OTHER Address: ATTN: CLAIMS DEPT [address] [facility] [place] [phone] Care Teams Fourdrinier Machine Operator Relationship Specialty Start Date End Date Jan Mckinnon MD [address] [place] [id number] PCP - General Emergency Medicine 08/09/23
--- OUTSIDE RECORDS SUMMARY | 2024-06-18 14:42 | XMS_ITS | Clinical Summary ---
Author Organization [facility] Address [address] [place] [address] Care Team Providers Care Grinder And Plater Name Role Phone Jan Mckinnon MD Primary Care Provider [phone] Allergies Active Allergy Reactions Criticality Noted Date [...] patch free period). 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 Gender Identity Not on file Sexual Orientation Not on file Obstetrics History Last Filed Vital Signs Vital Sign Reading [...] cm (5' 4 ) 04/02/2022 11:20 AM MEDICAL EDUCATION SPECIALIST Body Mass Index 30.9 04/02/2022 11:20 AM MEDICAL EDUCATION SPECIALIST Plan of Treatment Health Maintenance Due Date Last Done Comments Cervical Cancer Screening 1994 Depression Screening 1994 Hepatitis C Screening 1994 DTaP/Tdap/Td Vaccine (1 - Tdap) 2005 Varicella Vaccines (1 of 2 - 13+ 2-dose series) 2007 Hepatitis B Screening 02/27/2012 Regular Well Visit/Exam 18-64 02/27/2012 Pneumococcal vaccine <65 (1 of 2 - PCV) 2013 HPV Vaccines (3 - 3-dose series) 01/25/2017 09/30/19 17, 07/26/2016 Influenza Vaccine (Season Ended) 2024 Insurance [facility] Care Teams Grinder And Plater Relationship Specialty Start Date End Date Jan Mckinnon MD [address] [place] [id number] PCP - General Emergency Medicine 08/09/23
[2024-06-18 14:49] VITALS: BP 118/67; PULSE 67; RESP 17; TEMP 36.6; O2SAT 100
--- NOTE | 2024-06-18 15:24 | ED_ITS ---
HPI - Eye Problem General Chief complaint: Headache <Kaye Fofana PA-C - Last Filed: 06/18/24 17:43> Stated complaint: Headache <Kaye Fofana PA-C - Last Filed: 06/18/24 17:43> Time Seen by Provider: 06/18/24 15:24 <Kaye Fofana PA-C - Last Filed: 06/18/24 17:43> Focused HPI: This is a 29 year old female that presents to the ER for possible spider bite. Reports she had a spider in her hair. She believes it bit her on the forehead. She has had a headache since. Reports she is up to date on tetanus. She has not taken anything for her headache. GENERAL: Well-appearing, well-nourished, and in no acute distress. HEAD: Normocephalic, atraumatic. CHEST: No respiratory distress. HEART: Regular rate NEURO: ?Alert and oriented x3. Normal gait Patient screened in triage and initial orders placed.? ?Additional care and disposition to be based upon?diagnostic testing and treatment. <Kaye Fofana PA-C - Last Filed: 06/18/24 17:43> History of Present Illness HPI Narrative: agree with the HPI above <Michael Angelo MD - Last Filed: 06/18/24 19:56> Related Data Allergies/adverse reactions: Allergies Allergy/AdvReac Type Severity Reaction Status Date / Time epinephrine Allergy Mild Unknown Verified 11/12/23 08:03 <Kaye Fofana PA-C - Last Filed: 06/18/24 17:43> Review of Systems Review of Systems: as reviewed above in HPI <Michael Angelo MD - Last Filed: 06/18/24 19:56> PMFSH Past Medical History Medical History: Medical History Patient denies medical problems <Kaye Fofana PA-C - Last Filed: 06/18/24 17:43> Surgical History Surgical History: Surgical History No pertinent past surgical history <Kaye Fofana PA-C - Last Filed: 06/18/24 17:43> Social History Social History: Social History Smoking status: Current every day smoker Substance use type: marijuana <Kaye Fofana PA-C - Last Filed: 06/18/24 17:43> Exam Narrative: GENERAL: Well-appearing, well-nourished, and in no acute distress. HEAD: Normocephalic, atraumatic. CHEST: No respiratory distress. HEART: Regular rate NEURO: ?Alert and oriented x3. Normal gait <Michael Angelo MD - Last Filed: 06/18/24 19:56> Course Vital Signs Vital signs: Vital Signs Temperature 36.6 C 06/18/24 14:49 Pulse Rate 06/18/24 14:49 Respiratory Rate 06/18/24 14:49 Blood Pressure 118/67 06/18/24 14:49 Pulse Oximetry 100 06/18/24 14:49 Oxygen Delivery Room Air 06/18/24 14:49 Temperature 36.6 C 06/18/24 14:49 Pulse Rate 06/18/24 14:49 Respiratory Rate 06/18/24 14:49 Blood Pressure 118/67 06/18/24 14:49 Pulse Oximetry 100 06/18/24 14:49 Oxygen Delivery Room Air 06/18/24 14:49 <Kaye Fofana PA-C - Last Filed: 06/18/24 17:43> Vital Signs Temperature 36.6 C 06/18/24 14:49 Pulse Rate 06/18/24 14:49 Respiratory Rate 06/18/24 14:49 Blood Pressure 118/67 06/18/24 14:49 Pulse Oximetry 100 06/18/24 14:49 Oxygen Delivery Room Air 06/18/24 14:49 Temperature 36.6 C 06/18/24 14:49 Pulse Rate 06/18/24 14:49 Respiratory Rate 06/18/24 14:49 Blood Pressure 118/67 06/18/24 14:49 Pulse Oximetry 100 06/18/24 14:49 Oxygen Delivery Room Air 06/18/24 14:49 <Michael Angelo MD - Last Filed: 06/18/24 19:56> MDM - Eye Problem MDM Narrative Medical decision making narrative: 29-year-old female presenting for evaluation of a headache and potential insect bite. She was triaged and MSE conducted by midlevel provider, but prior to my assessment I was informed by nursing staff that patient had left without completing treatment. <Michael Angelo MD - Last Filed: 06/18/24 19:56> Discharge Plan Discharge Clinical Impression: Headache Qualifiers: Headache type: unspecified Headache chronicity pattern: acute headache Intractability: not intractable Qualified Code(s): R51.9 - Headache, unspecified <Kaye Fofana PA-C - Last Filed: 06/18/24 17:43> Patient Disposition: Elopement After Seen by Prov <Kaye Fofana PA-C - Last Filed: 06/18/24 17:43> Patient Language: Kyrgyz <Kaye Fofana PA-C - Last Filed: 06/18/24 17:43> Prescriptions: No Action bacitracin 500 unit/gram ointment 1 applic LEFTEYE Q8H 7 Days Qty: 3.5 0RF sulfamethoxazole-trimethoprim [Sulfatrim] 200-40 mg/5 mL suspension 20 ml PO BID Qty: 473 0RF <Kaye Fofana PA-C - Last Filed: 06/18/24 17:43> Follow-up/Referrals: Ina,Anneliese Grossman APRN [Primary Care Provider] - <Kaye Fofana PA-C - Last Filed: 06/18/24 17:43> Time of Disposition: 17:42 <Kaye Fofana PA-C - Last Filed: 06/18/24 17:43> 17:42 <Michael Angelo MD - Last Filed: 06/18/24 19:56>
--- OUTSIDE RECORDS SUMMARY | 2024-06-18 18:22 | XMS_ITS | Clinical Summary ---
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
--- OUTSIDE RECORDS SUMMARY | 2024-06-18 18:22 | XMS_ITS | Clinical Summary ---
Author Organization [facility] Address [address] [place] [address] Care Team Providers Care Nutter Up Name Role Phone Unavailable Primary Care Provider Unavailabl e Allergies Active Allergy Reactions Criticality Noted Date Comments Epinephrine Other (See Comments) High 2023 Per pt, cardiac arrest when I was 11. Medications ibuprofen (MOTRIN) 600 mg tablet Take 1 Tablet (600 mg) by mouth every 6 hours as needed for mild pain. 30 Tablet 2023 5:58 PM JAIL OFFICER 4 Active albuterol sulfate HFA 90 mcg/actuation aerosol inhaler Take 2 Puffs by inhalation every 4 hours as needed for Wheezing or Shortness of Breath. 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
--- OUTSIDE RECORDS SUMMARY | 2024-06-18 18:22 | XMS_ITS | Clinical Summary ---
Author Organization [facility] Address [address] [place] [address] Care Team Providers Care Bale Opener Name Role Phone Unavailable Primary Care Provider Unavailabl e Source Comments [facility],non-owned Affiliates and Associated Physician Practices is amultiple site organization consisting of ambulatory clinics and hospital sitesin [place], [place], [place] and [place]. This disclosure is being madepursuant to the Care Everywhere program and may not contain all information available regarding this patient. Last updated 17.[facility] Allergies No known active allergies Medications * Be aware that medications may not be up to date on this document. Alwaysverify current medications with the patient. 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 Gender Identity Not on file Sexual Orientation Not on file Last Filed Vital Signs Vital Sign Reading Time Taken Comments Blood Pressure 113/65 04/19/2014 8:11 PM CDT Pulse 76 04/19/2014 8:11 PM CDT Temperature 37.2 C (99 F) 04/19/2014 8:11 PM CDT Respiratory Rate 18 04/19/2014 8:11 PM CDT Oxygen Saturation 100% 04/19/2014 8:11 PM CDT Inhaled Oxygen Concentration - - Weight 59.9 kg (132 lb) 04/19/2014 8:11 PM CDT Height 160 cm (5' 2.99 ) 04/19/2014 8:11 PM CDT Body Mass Index 23.39 04/19/2014 8:11 PM CDT Plan of Treatment Health Maintenance Due Date Last Done Comments HIV SCREENING 2009 HEPATITIS C SCREENING 02/22/2012 DTAP/TDAP/TD VACCINES (1 - Tdap) 2013 HEPATITIS B VACCINE (1 of 3 - 19+ 3-dose series) 2013 COVID-19 VACCINE (1 - 2023-2 5 season) 2023 DEPRESSION SCREENING 02/13/2024 INFLUENZA VACCINE (Season Ended) 2024 ZOSTER VACCINE (1 of 2) 02/27/2044 HIB VACCINE Aged Out No longer eligi ble based on patient's age to complete this topic HPV VACCINE Aged Out No longer eligi ble based on patient's age to complete this topic MENINGOCOCCAL (Group B) VACC INE SHARED DECISION-MAKING Aged Out No longer eligibl e based on patient's age to complete this topic MENINGOCOCCAL GROUPS A/C/Y/W VACCINE Aged Out No longer eligible b ased on patient's age to complete this topic PNEUMOCOCCAL VACCINE Aged Out No long er eligible based on patient's age to complete this topic
== END 2024-06-18 17:30 | disposition left against medical advice (07) ==
LOC: ANHED 18:20
PROVIDERS: Emergency Provider Physician Assistant; PCP Nurse Practitioner Family
DX: R51.9 Headache, unspecified (principal); F17.200 Nicotine dependence, unspecified, uncomplicated
CPT/HCPCS: 99281

== ENCOUNTER 2024-07-19 05:25 | Emergency (ER) | payer OTHER, SELFPAY ==
[2024-07-19 05:28] VITALS: BP 124/78; PULSE 82; RESP 16; TEMP 36.6; O2SAT 100
[2024-07-19 05:32] VITALS: BP 124/78; PULSE 82; RESP 16; TEMP 36.6; O2SAT 100
--- NOTE | 2024-07-19 06:45 | ED_ITS ---
HPI - Skin/Abscess/Foreign Bdy General Chief complaint: Skin/Abscess/Foreign Body Stated complaint: insect bite on neck causing pain Time Seen by Provider: 07/19/24 05:51 History of Present Illness HPI narrative: 29-year-old female presenting to the emergency depart with a bug bite to her neck. Patient states that she woke up and felt some itchiness to the anterior portion of her neck and noticed a red spot. She has tried some hydrocortisone cream on it and it was slightly itchy but she did not take anything like Benadryl or allergy medications. Want to make sure that she was okay so she came to the hospital for evaluation. No difficulty swallowing, no difficulty breathing, no neck pain. No purulent drainage or bleeding. No other complaints. Related Data Allergies Allergy/AdvReac Type Severity Reaction Status Date / Time epinephrine Allergy Mild Unknown Verified 07/19/24 05:32 Review of Systems Review of Systems: As reviewed above in HPI [facility] Past Medical History Medical History Patient denies medical problems Surgical History Surgical History No pertinent past surgical history Social History Social History Smoking status: Current every day smoker Substance use type: marijuana Exam Narrative: GENERAL: [Well-appearing, well-nourished, and in no acute distress.] HEAD: [Normocephalic, atraumatic.] EYES: [PERRLA and EOMI.] ENT: Nares clear, no rhinorrhea or epistaxis. Mucous membranes moist. NECK: Supple. Anterior neck has what appears to be a bug bite without any overlying skin changes, cellulitis, redness or tenderness/fluctuance with palpation. CHEST: [Clear to auscultation. No respiratory distress.] HEART: [Regular rate and rhythm]. No murmur heard. [Normal peripheral pulses.] ABDOMEN: [Soft, nondistended], [nontender], [No rigidity or guarding] EXTREMITIES: Normal range of motion. [No edema.] SKIN: Warm, dry, no rash. NEURO: [No focal deficits]. Alert and oriented [x3.] PSYCH: [Normal mood and affect.] Course Vital Signs Vital signs: Vital Signs Temperature 36.6 C 07/19/24 05:28 Pulse Rate 82 07/19/24 05:28 Respiratory Rate 16 07/19/24 05:28 Blood Pressure 124/78 07/19/24 05:28 Pulse Oximetry 100 07/19/24 05:28 Oxygen Delivery Room Air 07/19/24 05:28 Temperature 36.6 C 07/19/24 05:32 Pulse Rate 82 07/19/24 05:32 Respiratory Rate 16 07/19/24 05:32 Blood Pressure 124/78 07/19/24 05:32 Pulse Oximetry 100 07/19/24 05:32 Oxygen Delivery Room Air 07/19/24 05:28 MDM - Skin/Abscess/Foreign Bdy MDM Narrative Medical decision making narrative: 29-year-old female presenting with a but bite to her anterior neck. Not clinically infected, no symptoms at this time, tried some hydrocortisone cream and wondered if she should take Benadryl. She has no symptoms at this time otherwise and looks well, normal vital signs. No signs of abscess or infection. Patient discharged with return precautions and instructions on Benadryl as needed for itchiness. Medical Records Attestation: I reviewed the patient's medical records. Discharge Plan Discharge Clinical Impression: Bug bite Patient Disposition: Home Condition: Stable Instructions: Antibiotic Form Additional Instructions: You have a bug bite but no signs of infection. Take Benadryl as needed for itchiness, you can use hydrocortisone cream that you have at home. Return with any worsening or new concerns. Patient Language: Lebanese Prescriptions: No Action bacitracin 500 unit/gram ointment 1 applic LEFTEYE Q8H 7 Days Qty: 3.5 0RF sulfamethoxazole-trimethoprim [Sulfatrim] 200-40 mg/5 mL suspension 20 ml PO BID Qty: 473 0RF Follow-up/Referrals: PHYSICIAN,ELEVATOR REPAIRER HELPER [Primary Care Provider] - Time of Disposition: 06:04
== END 2024-07-19 06:15 | disposition home or self-care (01) ==
LOC: ANHED 06:07
PROVIDERS: Emergency Provider Student in an Organized Health Care Education/Training Program
DX: S10.96XA Insect bite of unspecified part of neck, initial encounter (principal); F17.200 Nicotine dependence, unspecified, uncomplicated; W57.XXXA Bitten or stung by nonvenomous insect and other nonvenomous arthropods, initial encounter
CPT/HCPCS: 99281